=== PATIENT | female | born 1970 | race Caucasian/White ===

== ENCOUNTER 2022-10-19 10:32 | Inpatient (IN) | payer MEDICAID ==
[~2022-10-19] VITALS: Ht 157.5 cm; Wt 45.8 kg
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
--- NOTE | 2022-10-19 11:39 | NUR ---
emt and nurse at bedside attending pt needs
[2022-10-19] MEDS ORDERED: LORAZEPAM INJ 2 MG/ML VIAL ONE (11:48)
[2022-10-19] MEDS ORDERED: IV LR 1000 ML 1,000 ML BAG IV ONE (12:00)
[2022-10-19] MEDS ORDERED: LORAZEPAM INJ 2 MG/ML VIAL IM ONE (12:00)
[2022-10-19] MEDS ORDERED: PIPERACILLIN /TAZOBACTAM 3.375 G in IV D5W 50 ML IV ONE (12:00)
[2022-10-19] MEDS ORDERED: VANCOMYCIN 1 GM in IV D5W 250 ML IV ONE (12:00)
--- NOTE | 2022-10-19 12:04 | NUR ---
WOUND CULTURE SPECIMEN OBTAINED AND SENT TO LAB
--- NOTE | 2022-10-19 12:06 | NUR ---
IV LINE ESTABLISHED ON R HAND #20. PHLEB AT BEDSIDE FOR BLOOD DRAW.
--- NOTE | 2022-10-19 12:27 | NUR ---
SATELLITE TECHNICIAN AT XRAY
[2022-10-19 12:33] LABS: LYMPHOCYTES # (AUTO) 1.2 K/uL (0.8-4.8); LYMPHOCYTES % (AUTO) 3.5 % (20.0-44.0)
--- NOTE | 2022-10-19 12:44 | NUR ---
MOVE SHEET SUBMITTED.
[2022-10-19 12:50] LABS: BASOPHILS % (AUTO) 0.1 % (0.0-2.0); HEMATOCRIT 32 % (33-45); HEMOGLOBIN 10.2 g/dL (11.5-14.8); MEAN CORPUSCULAR HGB CONC 33 g/dl (31.0-36.0); MEAN CORPUSCULAR VOLUME 88 fL (82-100); MONOCYTES # (AUTO) 0.8 K/uL (0.1-1.30); MONOCYTES % (AUTO) 2.4 % (2.0-12.0); NEUTROPHILS # (AUTO) 31.4 K/uL (1.8-8.9); PLATELET COUNT (AUTO) 463 K/uL (150-450); RED BLOOD CELL COUNT(AUTO) 3.56 MIL/uL (4.0-5.2)
[2022-10-19 13:06] LABS: ALBUMIN 1.7 g/dL (3.4-5.0); BILIRUBIN,DIRECT 0.2 mg/dL (0.0-0.2); BILIRUBIN,TOTAL 0.5 mg/dL (0.2-1.0); CALCIUM, SERUM 8.3 mg/dL (8.5-10.1); CREATININE 1.6 mg/dL (0.6-1.3); POTASSIUM 5.4 mmol/L (3.5-5.1); TOTAL PROTEIN, SERUM 7.5 g/dL (6.4-8.2)
[2022-10-19 13:27] LABS: WHITE BLOOD COUNT (AUTO) 33.4 K/uL (4.3-11.0)
[2022-10-19] MEDS ORDERED: CLINDAMYCIN 600 MG in IV D5W 100 ML IV ONE (14:30)
[2022-10-19 15:58] LABS: LYMPHOCYTES % (MANUAL) 2 % (16-48); MONOCYTES % (MANUAL) 2 % (0-11.0); NEUTROPHILS % (MANUAL) 96 (42-76)
[2022-10-19] MEDS ORDERED: IV LR 1000 ML 1,000 ML IV ONE (17:00)
--- NOTE | 2022-10-19 17:15 | NUR ---
seen by dr. tijerina
--- NOTE | 2022-10-19 19:52 | NUR ---
BED 113-1
[2022-10-19] MEDS ORDERED: Z GUARD REMEDY 4 OZ OINT TP PRN (20:00)
[2022-10-19] MEDS ORDERED: MAG HYDROX/AL HYDROX/SIMETH 30 ML UDC PO PRN (20:00)
[2022-10-19] MEDS ORDERED: ONDANSETRON HCL/PF 4 MG/2 ML VIAL IVP PRN (20:00)
[2022-10-19] MEDS ORDERED: MAGNESIUM HYDROXIDE 30 ML UDC PO PRN (20:00)
[2022-10-19] MEDS ORDERED: MORPHINE SULFATE INJ 2 MG/ML DISP.SYRIN IV PRN (20:00)
--- NOTE | 2022-10-19 20:00 | NUR ---
URINE SAMPLE COLLECTED AND SENT TO LAB
[2022-10-19 20:27] LABS: BILIRUBIN,URINE NEGATIVE (NEGATIVE); COLOR,URINE YELLOW (YELLOW); LEUKOCYTE ESTERASE ,URINE NEGATIVE (NEGATIVE); NITRITE, URINE NEGATIVE (NEGATIVE); PH,URINE 5.5 (5.0-8.0); PROTEIN,URINE TRACE mg/dl (NEGATIVE); UGLUCOSE NEGATIVE (NEGATIVE); UROBILINOGEN,URINE 0.2 EU/dL (0.2)
--- NOTE | 2022-10-19 20:29 | NUR ---
REPORT GIVEN TO ESTIVEN ZAZUETA.
[2022-10-19 20:39] LABS: BACTERIA,URINE Few /HPF (None Seen); SQUAMOUS EPITHELIAL CELL,UR Moderate /HPF (None Seen); WBC,URINE NONE SEEN /HPF (0-3)
--- NOTE | 2022-10-19 21:08 | NUR ---
TRANSFERRED PATIENT TO [facility] VIA ACLS.
[2022-10-19 21:40] VITALS: BP 100/71
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
[2022-10-19] MEDS ORDERED: ZOLPIDEM TARTRATE 5 MG TABLET PO PRN (22:00)
[2022-10-19] MEDS ORDERED: PIPERACILLIN /TAZOBACTAM 2.25 G VIAL IV ONE (23:07)
[2022-10-19] MEDS: IV NS 0.9% 1,000 ML IV PRN (23:12)
[2022-10-19] MEDS: ZOSYN IVPB 2.25 G in IV D5W 50ml IV SCH (23:14)
[2022-10-20 04:00] VITALS: BP 99/53
[2022-10-20] MEDS ORDERED: PIPERACILLIN /TAZOBACTAM 2.25 G VIAL IV ONE (05:04)
[2022-10-20] MEDS: ZOSYN IVPB 2.25 G in IV D5W 50ml IV SCH ×4 (05:35→23:35)
[2022-10-20 06:14] LABS: CREATININE 1.1 mg/dL (0.6-1.3); MAGNESIUM 2.2 mg/dL (1.8-2.4); PHOSPHORUS 4.3 mg/dL (2.5-4.9); POTASSIUM 4.5 mmol/L (3.5-5.1)
[2022-10-20 06:19] LABS: BASOPHILS # (AUTO) 0.1 K/uL (0.0-0.2); BASOPHILS % (AUTO) 0.2 % (0.0-2.0); HEMATOCRIT 26 % (33-45); HEMOGLOBIN 8.6 g/dL (11.5-14.8); LYMPHOCYTES # (AUTO) 0.8 K/uL (0.8-4.8); LYMPHOCYTES % (AUTO) 2.3 % (20.0-44.0); MEAN CORPUSCULAR HGB CONC 34 g/dl (31.0-36.0); MEAN CORPUSCULAR VOLUME 87 fL (82-100); MONOCYTES # (AUTO) 0.9 K/uL (0.1-1.30); MONOCYTES % (AUTO) 2.6 % (2.0-12.0); NEUTROPHILS # (AUTO) 32.9 K/uL (1.8-8.9); NEUTROPHILS % (AUTO) 94.9 % (43.0-81.0); PLATELET COUNT (AUTO) 355 K/uL (150-450); RED BLOOD CELL COUNT(AUTO) 2.93 MIL/uL (4.0-5.2)
[2022-10-20 06:22] LABS: THYROID STIMULATING HORMONE 2.783 uIU/mL (0.358-3.74)
[2022-10-20 06:33] LABS: WHITE BLOOD COUNT (AUTO) 34.7 K/uL (4.3-11.0)
--- NOTE | 2022-10-20 06:39 | NUR ---
END OF SHIFT, PATIENT ASLEEP AT THIS TIME, AT ROOM AIR, NO SIGNIFICANT CHANGE IN CONDITION DURING THE NIGHT, ON IVF/ANTIBIOTICS, WOUND CONSULT FOR MULTIPLE WOUNDS, IV SITE IN RIGHT HAND 20G PATENT AND INTACT, BED LOCKED AND IN LOWEST POSITION, KEPT PATIENT CLEAN WARM AND COMFORTABLE, STABLE VITAL SINGS, WILL ENDORSE CONTINUITY OF CARE TO ONCOMING NURSE.
--- NOTE | 2022-10-20 07:00 | NUR ---
RN NOTES Received patient in bed, alert but tired looking without active complaint. Telemetry showed ST HR 125/min. Right hand IV site is dry and intact with IVF running at 75mL/hr. Call sidhu is placed within reach. Bed is locked and placed in the lowest position. All safety measures have been implemented.
[2022-10-20] MEDS: PANTOPRAZOLE 40 MG TABLET.DR PO SCH (07:30)
[2022-10-20 08:00] VITALS: BP 93/59
--- NOTE | 2022-10-20 10:05 | NUR ---
WOUND CARE CONSULT: PT PRESENTS WITH MULTIPLE SKIN ISSUES AND WOUNDS, PRESENT ON ADMISSION INCLUDING VERY SIGNIFICANT RT LOWER LEG AND FOOT WOUND WITH SEROPURULENT DRAINAGE AND VERY FOUL ODOR, LEFT LOWER LEG AND FOOT SWELLING WITH REDNESS, WELL DRY ESCHAR TO CHIN, RT AND LEFT BUTTOCK DEEP TISSUE INJURIES IN EVOLUTION, SACRAL DEEP TISSUE INJURY IN EVOLUTION AND CACHEXIA. RECOMMENDATIONS MADE FOR SKIN PROTECTION. DISCUSSED WITH NURSING STAFF. ORTHO CONSULT WAS CALLED TO LOWER EXTREMITIES PER NURSING STAFF AND MD DOCUMENTATION. PT ON ISOFLEX LOW AIRLOSS BED. MD IN AGREEMENT WITH PLAN OF CARE. Addendum: 10/20/22 at 1013 by BILLY FLORES IN ADDITION: THERE ARE INTACT DEEP TISSUE INJURIES/DISCOLORATIONS ALONG SPINE WHICH IS VERY BONY. RECOMMENDATIONS MADE FOR SKIN PROTECTION. DISCUSSED WITH NURSING STAFF. Addendum: 10/20/22 at 1022 by BILLY FLORES DISCUSSED ABOVE WITH DOUBLE END TENON OPERATOR. PODIATRY CONSULT ALSO CALLED TO DR SANTOS.
[2022-10-20] MEDS: ENSURE ENLIVE 237 ML LIQUID (VANILLA) PO SCH ×2 (11:59→16:26)
[2022-10-20 12:00] VITALS: BP 115/73
[2022-10-20] MEDS ORDERED: VANCOMYCIN HCL 0.75 GM in IV D5W 250 ML IV SCH (12:00)
--- NOTE | 2022-10-20 12:30 | NUR ---
RN notes Told patient about the need to do an MRI. She refused. Doctor is notified.
[2022-10-20 14:00] LABS: BAND % (MANUAL) 15 % (0.0-5.0); LYMPHOCYTES % (MANUAL) 4 % (16-48); MONOCYTES % (MANUAL) 1 % (0-11.0); NEUTROPHILS % (MANUAL) 80 (42-76)
[2022-10-20 16:00] VITALS: BP 90/54
[2022-10-20] MEDS: IV NS 0.9% 1,000 ML IV PRN (17:29)
--- NOTE | 2022-10-20 17:30 | NUR ---
RN NOTE ATTEMPTED TO PERFORM WOUND CARE AGAIN. PATIENT REFUSES AND STARTS KICKING, STATING "LEAVE ME". UNABLE TO PERFORM WOUND CARE AT THIS TIME. PATIENT IS ALSO REFUSING LINEN CARE.
--- NOTE | 2022-10-20 18:32 | NUR ---
RN notes Patient is resting in bed without active complaint. Right hand IV site is dry and intact with NS running at 75mL/hr. Afebrile today. Call sidhu is placed within reach. Bed is locked and placed in the lowest position. All safety measures have been implemented. Will endorse PM nurse to continue monitoring and care.
[2022-10-20 20:00] VITALS: BP 93/55
[2022-10-21] MEDS: VANCOMYCIN HCL 0.75 GM in IV D5W 250 ML IV SCH ×2 (00:31→12:19)
[2022-10-21 04:00] VITALS: BP 100/51
[2022-10-21] MEDS: ZOSYN IVPB 2.25 G in IV D5W 50ml IV SCH ×3 (05:25→17:01)
--- NOTE | 2022-10-21 06:39 | NUR ---
RN CLOSING NOTES: RECEIVED PT IN BED, ALERT/ORIENTED X0, VERY CONFUSED. ON ROOM AIR AND PT TOLERATED WELL. O2 SAT 99%. IV ACCESS ON RT HAND#20G INTACT AND PATENT. NO S/S OF INFILTRATIONS. RUNNING NS AT 75CC/HR. NO C/O PAIN OR DISCOMFORT. NO ACUTE DISTRESS. WOUND CARE DONE. NOTED FOUL SMELL. ALL DUE MEDS GIVEN GIVEN ORDERED. ALL SAFETY MEASURES IN PLACE. SIDE RAILS UP X3, PLACE CALL LIGHT WITH IN REACH. WILL ENDORSE TO MORNING SHIFT NURSE.
[2022-10-21 07:18] LABS: BASOPHILS % (AUTO) 0.1 % (0.0-2.0); EOSINOPHILS % (AUTO) 0.1 % (0.0-6.0); HEMATOCRIT 24 % (33-45); HEMOGLOBIN 8.1 g/dL (11.5-14.8); LYMPHOCYTES # (AUTO) 0.8 K/uL (0.8-4.8); LYMPHOCYTES % (AUTO) 3.9 % (20.0-44.0); MEAN CORPUSCULAR HGB CONC 34 g/dl (31.0-36.0); MEAN CORPUSCULAR VOLUME 87 fL (82-100); MONOCYTES % (AUTO) 5.1 % (2.0-12.0); NEUTROPHILS # (AUTO) 17.8 K/uL (1.8-8.9); NEUTROPHILS % (AUTO) 90.8 % (43.0-81.0); PLATELET COUNT (AUTO) 351 K/uL (150-450); RED BLOOD CELL COUNT(AUTO) 2.76 MIL/uL (4.0-5.2); WHITE BLOOD COUNT (AUTO) 19.6 K/uL (4.3-11.0)
--- NOTE | 2022-10-21 07:43 | NUR ---
RN NOTES PATIENT REPORT RECEIVED FROM NIGHTSHIFT RNJEFFERSON. PATIENT IN ROOM ASLEEP BREATHING EVENLY AND UNLABORED ON ROOM AIR. IV ACCESS MAINTAINED ON RIGHT HAND 20 GAUGE RUNNING FLUIDS ORDERED. SAFETY MEASURES IN PLACE WILL CONTINUE PLAN OF CARE AND ANTICIPATE NEEDS.
[2022-10-21 08:01] LABS: BILIRUBIN,TOTAL 0.4 mg/dL (0.2-1.0); CALCIUM, SERUM 7.3 mg/dL (8.5-10.1); MAGNESIUM 2.1 mg/dL (1.8-2.4); PHOSPHORUS 2.9 mg/dL (2.5-4.9); POTASSIUM 3.8 mmol/L (3.5-5.1); TOTAL PROTEIN, SERUM 5.4 g/dL (6.4-8.2)
[2022-10-21 08:02] LABS: ALBUMIN 1.1 g/dL (3.4-5.0)
[2022-10-21] MEDS: PANTOPRAZOLE 40 MG TABLET.DR PO SCH (08:09)
[2022-10-21] MEDS: ENSURE ENLIVE 237 ML LIQUID (VANILLA) PO SCH ×3 (08:09→17:01)
--- NOTE | 2022-10-21 10:41 | NUR ---
PATIENT REFUSING WOUND CARE. STATES SHE IS "TIRED" AND WANTS TO BE LEFT ALONE. PROVIDED EDUCATION ON THE IMPORTANCE OF WOUND CARE. PATIENT COVERED HER FACE AND REFUSES TO TALK FURTHER. WILL CONTINUE PLAN OF CARE AND ANTICIPATE NEEDS.
[2022-10-21 12:00] VITALS: BP 105/63
--- NOTE | 2022-10-21 14:35 | NUR ---
SS Consult: SS consult requested for homelessness and missing last name. The pt. is a 57 -year-old female pt. admitted for failure to thrive per EMR. Upon SS consult, the pt. is Alert & Oriented x 3 and makes good eye contact. The pt. appears disheveled with paranoid mood & affect. Pt.s speech is clear and has disorganized thought process. Pt. remained guarded, calm & somewhat cooperative throughout interview. Pt. denies SI/HI and denies visual hallucinations. Pt. states she ignores the voices. Pt. denies having commanding auditory hallucinations. Pt. denies any previous diagnosis of mental illness and denies use of medication for her mental health. SW explored pt.s [place]. [place] [address] and refused to give details of where she resides. SW explored pt.s drug & ETOH use. Pt. denies use of any alcohol & drug use. Pt. stated she was ambulating independently prior to hurting her foot. SW explored pt.s support system. Pt. refused to provide any contact information of family or friends. Plan: SW provided homeless resources: shelters, storage, rehousing services, food javed, etc. and pt. accepted them. Pt. signed homeless waiver and it was placed in the pt.s chart. Pt. did not answer URIEL when asked if she would like long-term placement. SW can will follow up as needed. Year-round shelters: [facility] [address] [place], [place] [phone] ; [facility] [address] [place] [address]; [facility] [id number] [facility]. [facility] [address] Hygiene: [facility]: [address] [place] ; [facility] [address] [facility] ; [facility] [address] . Food Resources: [place] [facility] at [facility]- [address]. Lena; Meet Each Need with Dignity ([facility]) [address]; [facility] Food Pant[facility] [address] [facility]; [facility] [address] [facility]. Mental Health resources provided: [facility] [address] [place], [place] [address] ; [facility] [address], [place] [address] ; [facility] [address] [place] [address] ; [facility] [address] [place], [place] [phone] Healthcare Clinics: [facility] [address] [facility], [address] [place]. [place] ; [facility] [address] [facility] [address] [place] [address]; [facility] [address] [facility] [place] [address] [phone]) [phone] Counseling--Outpatient [facility] [address] [facility], [place] [address] (Specializes in in-depth psychotherapy for emotional distress: anxiety, depression, interpersonal conflicts, life transitions, childhood abuse) [facility] [address] [place] [address] (Assist with solving problem marital difficulties, separation & divorce, aging parents, & grief, chronic & terminal illness) [facility] [address] [place] [address] (Deal with loss & grief, anxiety, marital difficulties) Homebound/Mental Health Services [address] [facility], [address] [place] [address] (Provide in-home mental services to people who are incapable of leaving their homes) [facility] of [facility] Elderly Senior Service/Resource Center [address] [place] [address] [facility] [address] [facility]. [place], [place] [phone] PSYCHIATRIC OUTPATIENT SERVICES [facility] Partial Hospitalization and Intensive Outpatient Program (Managed Care and [place] Only)[address] [facility] [phone] [facility] Partial Hospitalization and Outpatient [id number] [place], [place] [phone] PRAVEEN TRISTAN [facility] Health Burkett [address] [place], [place] [phone] [facility] Partial Hospitalization and Outpatient [id number] [facility] Praveen Tristan, [phone] Substance Abuse resources provided included: [facility] Substance Abuse Self-Helpline ([facility]) ; [facility] [address] [facility]. [place] [id number] ; [facility] [address] [facility] [address] ; [facility] Rehabilitation Program [address] [facility] [phone] ; [facility] [address] [facility] [phone] ; [facility] Treatment Centers 4940 [facility] [phone] ; [facility] [address] [facility] [phone] ; [facility] Substance Abuse Helpline(SAS)-[facility] ; [facility] ; [facility] Roxana; [facility] [place]; [facility] [place]; [facility] Praveen Arangoeduardo; [facility]; [facility]; [facility] [place]; [facility], [facility]. Heladio Bass; Alcoholics Anonymous -[facility]V; Misty ; Marijuana Anonymous -[facility]V; Narcotics Anonymous [email or web address]; Addendum: 10/21/22 at 1538 by MANDA TREVINO Correction: Pt. was admitted for foot wound per EMR. Pt. refused to sign homeless waiver and it was placed in the pt.'s chart.
--- NOTE | 2022-10-21 15:38 | NUR ---
Pt. provided full name: Sarah Hawthorne and : 1970. SW left admission dept, Paige a voicemail with information.
[2022-10-21] MEDS: IV NS 0.9% 1,000 ML IV PRN (16:11)
--- NOTE | 2022-10-21 18:57 | NUR ---
PATIENT REMAINS IN ROOM. HAND OFF REPORT GIVEN TO NIGHTSHIFT RN FOR CONTINUATION OF CARE.
--- NOTE | 2022-10-21 19:30 | NUR ---
RN OPENING NOTE PT A&OX0. STATED THAT SHE HAD TO MAKE A BM AND WAS PLACED ON BED PETERSON AND CLEANED. SKIN IS WARM AND DRY. RESPIRATIONS EVEN AND UNLABORED ON RA. NO ACUTE SIGNS OF DISTRESS. 20 G R HAND IV INTACT AND RUNNING NS @ 75 ML/HR. PT DENIES OTHER NEEDS AT THIS TIME. SAFETY PRECAUTIONS IN PLACE. BED LOCKED AND AT LOWEST POSITION WITH X2 RAILS UP. BED ALARM ON AND CALL LIGHT WITHIN REACH.
[2022-10-21 20:00] VITALS: BP 107/59
[2022-10-22] MEDS: VANCOMYCIN HCL 0.75 GM in IV D5W 250 ML IV SCH ×2
[2022-10-22] MEDS: ZOSYN IVPB 2.25 G in IV D5W 50ml IV SCH ×4 (00:03→17:07)
[2022-10-22 04:00] VITALS: BP 109/61
--- NOTE | 2022-10-22 07:05 | NUR ---
RN NOTES RECEIVED PT ON BED, Ax0x1, ON RA , O2 SAT WNL, NO DISTESS NOTED, DRESSING TO RIGHT LEG INTACT, SR UP x3, CALL LIGHT WITHIN EASY REACH, BED LOCKED AND IN LOWEST POSITION, CONTINUE TO MONITOR.
[2022-10-22 07:21] LABS: BASOPHILS % (AUTO) 0.1 % (0.0-2.0); EOSINOPHILS % (AUTO) 0.1 % (0.0-6.0); HEMATOCRIT 25 % (33-45); HEMOGLOBIN 8.1 g/dL (11.5-14.8); LYMPHOCYTES # (AUTO) 0.7 K/uL (0.8-4.8); LYMPHOCYTES % (AUTO) 6.2 % (20.0-44.0); MEAN CORPUSCULAR HGB CONC 33 g/dl (31.0-36.0); MEAN CORPUSCULAR VOLUME 88 fL (82-100); MONOCYTES # (AUTO) 0.7 K/uL (0.1-1.30); NEUTROPHILS % (AUTO) 87.6 % (43.0-81.0); PLATELET COUNT (AUTO) 353 K/uL (150-450); RED BLOOD CELL COUNT(AUTO) 2.82 MIL/uL (4.0-5.2); WHITE BLOOD COUNT (AUTO) 11.5 K/uL (4.3-11.0)
[2022-10-22 08:00] VITALS: BP 103/60
[2022-10-22] MEDS: PANTOPRAZOLE 40 MG TABLET.DR PO SCH (08:14)
[2022-10-22] MEDS: ENSURE ENLIVE 237 ML LIQUID (VANILLA) PO SCH ×3 (08:15→16:44)
--- NOTE | 2022-10-22 08:30 | NUR ---
WOUND CARE CONSULT/FOLLOW UP: RECEIVED ANOTHER CONSULT FOR LOWER EXTREMITIES. PT HAS SEVERE WOUNDS/SWELLING WITH VERY FOUL DRAINAGE TO RT LOWER LEG AND FOOT, PRESENT ON ADMISSION. NEEDS SURGICAL CONSULT. DISCUSSED WITH DRUM STRAIGHTENER AND NURSING STAFF. DEFER TO PMD FOR ORTHO CONSULT. PT HAS BEEN REFUSING MRI. DISCUSSED RECOMMENDATIONS FOR SKIN PROTECTION AND WOUND CARE WHILE AWAITING SURGICAL/ORTHO CONSULT.
[2022-10-22 08:59] LABS: MAGNESIUM 1.9 mg/dL (1.8-2.4); PHOSPHORUS 2.6 mg/dL (2.5-4.9); POTASSIUM 3.3 mmol/L (3.5-5.1)
[2022-10-22] MEDS ORDERED: DEXTROSE 50%-WATER 50 ML DISP.SYRIN ONE (09:40)
[2022-10-22] MEDS ORDERED: DEXTROSE 50%-WATER 50 ML DISP.SYRIN IVP ONE (10:00)
[2022-10-22 10:29] LABS: CALCIUM, SERUM 7.3 mg/dL (8.5-10.1); CREATININE 0.9 mg/dL (0.6-1.3)
--- NOTE | 2022-10-22 10:30 | NUR ---
PATIENT VERBALIZED SHE HAD MRI 2002 AND DENIED ANY METAL ON HER BODY.AGREED WITH THE MRI.MRI NOTIFIED.
[2022-10-22] MEDS: VANCOMYCIN 500 MG in IV D5W 100ml IV SCH (11:23)
[2022-10-22 12:00] VITALS: BP 98/48
--- NOTE | 2022-10-22 12:00 | NUR ---
RN NOTES PT REFUSED TO HAVE MRI DONE, DESPITE EXPLANATION OF RISK INCLUDING , PT STILL REFUSED, DR BOWMAN NOTIFIED,
[2022-10-22] MEDS: DAKINS FULL STRENGTH (0.5%) 480 ML BOTTLE TOP SCH (12:08)
--- NOTE | 2022-10-22 12:48 | NUR ---
RN NOTES PT REFUSED TO HAVE DRESSING CHANGE DONE TO RIGHT LEG , STATED IT IS OK . EXPLAINED TO PT HOW IMPORTANT IS TO STAY WITH PLAN OF CARE , PT STILL REFUSED .
[2022-10-22] MEDS: POTASSIUM CL. PREMIX PERIPHER. 50 ML IV SCH ×2 (12:59→14:00)
[2022-10-22 13:00] VITALS: BP 107/61
[2022-10-22] MEDS: IV NS 0.9% 1,000 ML IV PRN (15:56)
[2022-10-22 16:00] VITALS: BP 107/61
[2022-10-22] MEDS ORDERED: TDAP [DIPH/PERTUSSIS/TET] 0.5 ML VIAL IM ONE (16:00)
--- NOTE | 2022-10-22 16:09 | NUR ---
RN NOTES PT REFUSING CARE, DR BOWMAN AND DR WATTS ( PSYCH ) NOTIFIED , NEW PSYCH CONSULT ORDER PLACED ,IF PT HAS CAPACITY TO MAKE DECISION.
--- NOTE | 2022-10-22 18:29 | NUR ---
RN NOTES PT CONFUSED AT TIMES, REFUSES CARE , MD NOTIFIED . SR UP x3, CALL LIGHT WITHIN EASY REACH, BED LOCKED AND IN LOWEST POSITION, WILL ENDORSE TO CHARTER COACH DRIVER NURSER FOR CONTINUITY OF CARE
--- NOTE | 2022-10-22 19:30 | NUR ---
RN OPENING NOTES PT A&OX0 AND CONFUSED. SKIN IS WARM AND DRY. ODOR FROM R LEG NOTED. DRESSING IN PLACE ON RLE. AMILCAR IV INTACT AND RUNNING NS @ 75 ML/HR. PT ON RA AND TOLERATING WELL. NO ACUTE SIGNS OF DISTRESS. PT DRANK A CARTON OF MILK. SAFETY PRECAUTIONS IN PLACE. BED LOCKED AND AT LOWEST LEVEL. X2 RAILS UP AND BED ALARM ON. CALL LIGHT WITHIN REACH. DENIES OTHER NEEDS AT THIS TIME.
[2022-10-22 20:00] VITALS: BP 104/56
[2022-10-23] MEDS: ZOSYN IVPB 2.25 G in IV D5W 50ml IV SCH ×4 (00:08→17:19)
[2022-10-23] MEDS: VANCOMYCIN 500 MG in IV D5W 100ml IV SCH ×2 (00:45→11:33)
--- NOTE | 2022-10-23 03:38 | NUR ---
EDUCATED PT AND PROMOTED DRESSING CHANGE. PT REFUSED SINCE SHE "COULDN'T TAKE THE PAIN" LAST TIME IT WAS DONE. OFFERED PT PAIN MEDICATION PRIOR TO CHANGE BUT PT REFUSED.
[2022-10-23 05:58] VITALS: BP 104/62
--- NOTE | 2022-10-23 06:33 | NUR ---
RN CLOSING NOTE PT REMAINS CONFUSED. SKIN IS WARM AND DRY. ODOR AND LEAKAGE FROM R LEG DRESSING NOTED. AMILCAR IV INTACT AND RUNNING ABX. PT ON RA AND TOLERATING WELL. NO ACUTE SIGNS OF DISTRESS. SAFETY PRECAUTIONS IN PLACE. BED LOCKED AND AT LOWEST LEVEL. X2 RAILS UP AND BED ALARM ON. CALL LIGHT WITHIN REACH.
--- NOTE | 2022-10-23 07:18 | NUR ---
RN OPENING NOTES: RECEIVED PATIENT IN BED ASLEEP BUT EASILY AROUSES TO SOUND AND TOUCH. PATIENT IS ALERT TO NAME BUT NOTED WITH PERIODS OF CONFUSION. NO SOB NOTED, ON RA WITH OXYGEN SATURATION OF 100%. NO C/O PAIN OR DISCOMFORT AT THIS TIME. IV ACCESS ON LEFT UPPER ARM IS INTACT WITH IV FLUID OF NS RUNNING @ 75 ML/HR, IV SITE WITH NO S/S INFILTRATION NOTED. CALL LIGHT WITHIN REACH. ALL SAFETY MEASURES IN PLACE. BED LOCKED AND IN LOWEST POSITION. WILL CONTINUE TO MONITOR PATIENT THROUGHOUT SHIFT.
[2022-10-23] MEDS: ENSURE ENLIVE 237 ML LIQUID (VANILLA) PO SCH ×3 (07:40→17:00)
[2022-10-23] MEDS: PANTOPRAZOLE 40 MG TABLET.DR PO SCH (07:51)
[2022-10-23] MEDS: DAKINS FULL STRENGTH (0.5%) 480 ML BOTTLE TOP SCH (09:22)
--- NOTE | 2022-10-23 09:27 | NUR ---
CHRISTIAN MALHOTRA DNP CAME BY TO SPEAK WITH THE PATIENT FOR PSYCHIATRY CONSULT AND EVALUATION.
[2022-10-23] MEDS: IV NS 0.9% 1,000 ML IV PRN (11:33)
--- NOTE | 2022-10-23 11:33 | NUR ---
CALLED PHARMACY, SPOKE WITH LASHONDA AND INFORMED OF TROUGH OF 23 AND STATED TO GIVE VANCO ORDERED BY .
[2022-10-23 11:36] LABS: BASOPHILS % (AUTO) 0.1 % (0.0-2.0); EOSINOPHILS % (AUTO) 0.4 % (0.0-6.0); HEMATOCRIT 26 % (33-45); HEMOGLOBIN 8.6 g/dL (11.5-14.8); LYMPHOCYTES # (AUTO) 0.9 K/uL (0.8-4.8); MEAN CORPUSCULAR HGB CONC 33 g/dl (31.0-36.0); MEAN CORPUSCULAR VOLUME 89 fL (82-100); MONOCYTES # (AUTO) 0.6 K/uL (0.1-1.30); MONOCYTES % (AUTO) 7.3 % (2.0-12.0); NEUTROPHILS # (AUTO) 6.7 K/uL (1.8-8.9); NEUTROPHILS % (AUTO) 81.2 % (43.0-81.0); PLATELET COUNT (AUTO) 372 K/uL (150-450); RED BLOOD CELL COUNT(AUTO) 2.95 MIL/uL (4.0-5.2); WHITE BLOOD COUNT (AUTO) 8.3 K/uL (4.3-11.0)
[2022-10-23 11:51] LABS: CALCIUM, SERUM 7.4 mg/dL (8.5-10.1); CREATININE 0.8 mg/dL (0.6-1.3); MAGNESIUM 1.8 mg/dL (1.8-2.4); POTASSIUM 3.6 mmol/L (3.5-5.1)
[2022-10-23 12:00] VITALS: BP 99/61
--- NOTE | 2022-10-23 12:45 | NUR ---
ZOSYN AVAILABLE ON HAND IS WITH A DIFFERENT TIME. CALLED PHARMACY, SPOKE WITH JARITHA AND WAS INFORMED TO GIVE MEDICATION SINCE THE ORDER IS THE SAME. MED ADMINISTERED ORDERED BY
[2022-10-23] MEDS: HYDROCODONE/APAP 5/325MG TABLET PO PRN (13:36)
--- NOTE | 2022-10-23 15:15 | NUR ---
WOUND CARE TREATMENT DONE AND TOLERATED BY THE PATIENT.
[2022-10-23 15:57] LABS: ALCOHOL, BLOOD < 3 mg/dL (0-0)
[2022-10-23 16:00] LABS: ACETAMINOPHEN < 10 ug/ml (10-30)
[2022-10-23] MEDS ORDERED: K PHOS NEUTRAL 250 MG TABLET PO ONE (16:00)
--- NOTE | 2022-10-23 18:50 | NUR ---
ELECTRICAL SYSTEMS DRAFTER CLOSING NOTES: PATIENT IN BED, AWAKE, ALERT, ORIENTED TO NAME AND PLACE. NO C/O PAIN OR DISCOMFORT AT THIS TIME. ON NS @ 75 ML,/HR VIA IV SITE ON LEFT UPPER ARM, NO S/S INFILTRATION NOTED. ALL NEEDS MET AND ANTICIPATED. CALL LIGHT WITHIN REACH. BED LOCKED AND IN LOWEST POSITION. WILL ENDORSE TO NEXT SHIFT NURSE FOR CONTINUITY OF CARE.
--- NOTE | 2022-10-23 19:10 | NUR ---
RN OPENING NOTES: RECEIVED PATIENT IN BED AWAKE, PT IS ALERT BUT SEEMS TO BE CONFUSED, WITH SWITCHING CONVERSATION TOPICS.ON RA, TOLERATING WELL, NO S/S OF DISTRESS. IV ACCESS ON AMILCAR RUNNING NS@ 75 ML/HR, IV SITE WITH NO S/S INFILTRATION NOTED. PT RIGHT LEG DRESSING C/D/I. ALL SAFETY MEASURES IN PLACE. CALL LIGHT WITHIN REACH. BED LOCKED AND IN LOWEST POSITION. WILL CONTINUE TO MONITOR PATIENT THROUGHOUT SHIFT
[2022-10-23 20:00] VITALS: BP 103/55
--- NOTE | 2022-10-23 23:15 | NUR ---
RN NOTE URINE SAMPLE COLLECTED AND SENT TO LAB.
--- NOTE | 2022-10-23 23:55 | NUR ---
RN NOTE PT REFUSED DRESSING CHANGE AND WOUND CLEANING. SHE STATED IT WAS DONE AT 3PM AND DOESNT NEED TO BE DONE AGAIN. I TOLD HER THAT IT IS LEAKING THROUGH THE BANDAGES AND THEY NEED TO BE CHANGED SHE HER WORDS WERE TO PLACE THE PAD UNDER HER LEG. I TOLD HER I CAN GIVE HER PAIN MEDICINE AND COME BACK, SHE STILL REFUSED.
[2022-10-24] MEDS: ZOSYN IVPB 2.25 G in IV D5W 50ml IV SCH ×5 (00:02→23:41)
[2022-10-24] MEDS: VANCOMYCIN 500 MG in IV D5W 100ml IV SCH ×2 (00:54→12:31)
[2022-10-24 04:00] VITALS: BP 103/62
[2022-10-24] MEDS: IV NS 0.9% 1,000 ML IV PRN ×2 (05:27→23:51)
--- NOTE | 2022-10-24 06:44 | NUR ---
RN CLOSING NOTES: PATIENT IN BED ASLEEP, AROUSES EASILY.ON RA, TOLERATING WELL, NO S/S OF DISTRESS. IV ACCESS ON AMILCAR RUNNING NS@ 75 ML/HR, IV SITE WITH NO S/S INFILTRATION NOTED. PT RIGHT LEG DRESSING C/D/I. ALL DUE MEDS GIVEN. ALL SAFETY MEASURES IN PLACE. CALL LIGHT WITHIN REACH. BED LOCKED AND IN LOWEST POSITION. WILL ENDORSE TO MORNING SHIFT.
--- NOTE | 2022-10-24 07:05 | NUR ---
OXYACETYLENE CUTTER CLOSING NOTE PATIENT IN BED AWAKE, A/O X2 with episodes of confusion, ON ROOM AIR, TOLERATING WELL, NO S/S OF DISTRESS. ABLE TO MAKE NEEDS KNOWN. . IV ACCESS AMILCAR #22G RUNNING NS@75ML/HR. WOUND DRESSING IS SOAKED PER NIGHT RN PATIENT REFUSED DRESSING CHANGED ALL SAFETY MEASURES IN PLACE. CALL LIGHT WITHIN REACH. BED LOCKED AND IN LOWEST POSITION. WILL MONITOR.
[2022-10-24] MEDS: PANTOPRAZOLE 40 MG TABLET.DR PO SCH (07:51)
[2022-10-24] MEDS: ENSURE ENLIVE 237 ML LIQUID (VANILLA) PO SCH ×3 (07:53→17:29)
[2022-10-24 08:00] VITALS: BP 94/49
[2022-10-24 08:21] LABS: BASOPHILS % (AUTO) 0.1 % (0.0-2.0); EOSINOPHILS % (AUTO) 0.4 % (0.0-6.0); HEMATOCRIT 21 % (33-45); HEMOGLOBIN 7.3 g/dL (11.5-14.8); LYMPHOCYTES # (AUTO) 1.1 K/uL (0.8-4.8); LYMPHOCYTES % (AUTO) 13.8 % (20.0-44.0); MEAN CORPUSCULAR HGB CONC 34 g/dl (31.0-36.0); MEAN CORPUSCULAR VOLUME 89 fL (82-100); MONOCYTES # (AUTO) 0.6 K/uL (0.1-1.30); MONOCYTES % (AUTO) 7.6 % (2.0-12.0); NEUTROPHILS # (AUTO) 6.1 K/uL (1.8-8.9); NEUTROPHILS % (AUTO) 78.1 % (43.0-81.0); PLATELET COUNT (AUTO) 313 K/uL (150-450); WHITE BLOOD COUNT (AUTO) 7.8 K/uL (4.3-11.0)
[2022-10-24 08:48] LABS: CALCIUM, SERUM 6.8 mg/dL (8.5-10.1); CREATININE 0.7 mg/dL (0.6-1.3); MAGNESIUM 1.7 mg/dL (1.8-2.4); PHOSPHORUS 2.4 mg/dL (2.5-4.9); POTASSIUM 3.4 mmol/L (3.5-5.1)
[2022-10-24] MEDS: Magnesium 1GM/D5W 100ML PREMIX 100 ML IV SCH ×2 (09:38→11:00)
[2022-10-24] MEDS: DAKINS FULL STRENGTH (0.5%) 480 ML BOTTLE TOP SCH (09:45)
--- NOTE | 2022-10-24 09:45 | NUR ---
RN notes: pt refused wound care, explained risk and benefits still say later will offer again later
[2022-10-24] MEDS ORDERED: POTASSIUM CHLORIDE 20 MEQ TAB.PRT.SR PO ONE (11:00)
[2022-10-24 16:00] VITALS: BP 125/96
[2022-10-24] MEDS ORDERED: K PHOS NEUTRAL 250 MG TABLET PO ONE (16:00)
--- NOTE | 2022-10-24 19:15 | NUR ---
medical terminologist closing notes: PT IN BED AWAKE, ALERT X 1, RESPIRATION IS EVEN AND UNLABORED, ON ROOM AIR SATTING 98% ,SKIN IS WARM AND DRY. BERNIE MIDLINE INTACT AND RUNNING D5W @ 75 HL/HR. JEVITY FEEDING STOPPED AT 0600. SUPRAPUBIC DALTON INTACT. ALL DUE MEDS ARE GIVEN ORDERED.KEPT CLEAN AND DRY AND COMFORTABLE, REPOSITION EVERY 2 HOURS,SAFETY PRECAUTIONS IN PLACE. BED LOCKED AND AT LOWEST LEVEL. X2 RAILS UP AND BED ALARM ON. R SOFT WRIST RESTRAINTS IN PLACE. CALL LIGHT WITHIN REACH ENDORSED TO WATER AND GAS HELPER RN FOR NALLELY
--- NOTE | 2022-10-24 19:30 | NUR ---
MED SURGE OPEN NOTE: ALERT TO NAME AND TIME. REORIENTED TO PLACE AND SITUATION. UNLABORED BREATHING SATING AT 98 % AT ROOM AIR. IVF OF NS 75 ML/HR. IV SITE ON LEFT UPPER ARM G 22, PATENT NO S/S OF COMPLICATIONS. RLE WITH DRESSING ON. BILATERAL HALF SIDE RAILS UP X2. HOB ELEVATED SEMI FOWLERS POSITION. BED IN LOW POSITION, LOCKED AND EXIT ALARM ON. CALL LIGHT IN REACH.
[2022-10-25] VITALS: BP 108/62
[2022-10-25] MEDS: VANCOMYCIN 500 MG in IV D5W 100ml IV SCH (00:27)
[2022-10-25] MEDS: ACETAMINOPHEN 325 MG TABLET PO PRN (02:16)
[2022-10-25] MEDS: ZOSYN IVPB 2.25 G in IV D5W 50ml IV SCH (05:25)
--- NOTE | 2022-10-25 06:47 | NUR ---
MED SURGE CLOSING NOTE: ALERT TO NAME AND TIME. REORIENTED TO PLACE AND SITUATION. UNLABORED BREATHING SATING AT 98 % AT ROOM AIR. IVF OF NS 75 ML/HR. IV SITE ON LEFT UPPER ARM G 22, PATENT NO S/S OF COMPLICATIONS. RLE WITH DRESSING ON. BILATERAL HALF SIDE RAILS UP X2. HOB ELEVATED SEMI FOWLERS POSITION. BED IN LOW POSITION, LOCKED AND EXIT ALARM ON. CALL LIGHT IN REACH. RLE DRESSING WITH MODERATE DRAINAGE SEROSANGUINEOUS, AND SOILED, REFUSED WOUND CARE, RISKS VS BENEFITS EXPLAINED AND VERBALIZED UNDERSTANDING AND SILL REFUSED. OFFERED TIMES THREE, RESIDENT STARTS TO YELL WHEN APPROACHED TO PROVIDE WOUND CARE, C/O PAIN 07/31 BUT REFUSED MORPHINE, NORCO. TYLENOL GIVEN REQUESTED. PATIENT STATED "I WANT OT REST, I DO NOT WANT TO BE BOTHERED." "I WILL HAVE IT CLEANED IN AM."
[2022-10-25 07:23] LABS: BASOPHILS % (AUTO) 0.4 % (0.0-2.0); EOSINOPHILS % (AUTO) 0.4 % (0.0-6.0); HEMATOCRIT 21 % (33-45); LYMPHOCYTES # (AUTO) 0.8 K/uL (0.8-4.8); LYMPHOCYTES % (AUTO) 12.7 % (20.0-44.0); MEAN CORPUSCULAR HGB CONC 34 g/dl (31.0-36.0); MEAN CORPUSCULAR VOLUME 88 fL (82-100); MONOCYTES # (AUTO) 0.5 K/uL (0.1-1.30); MONOCYTES % (AUTO) 7.8 % (2.0-12.0); NEUTROPHILS # (AUTO) 5.2 K/uL (1.8-8.9); NEUTROPHILS % (AUTO) 78.7 % (43.0-81.0); PLATELET COUNT (AUTO) 285 K/uL (150-450); RED BLOOD CELL COUNT(AUTO) 2.35 MIL/uL (4.0-5.2); WHITE BLOOD COUNT (AUTO) 6.5 K/uL (4.3-11.0)
--- NOTE | 2022-10-25 07:30 | NUR ---
RN OPENING NOTE PATIENT ALERT TO NAME AND TIME. REORIENTED TO PLACE AND SITUATION. UNLABORED BREATHING SATING AT 98 % AT ROOM AIR. IVF OF NS 75 ML/HR. IV SITE ON LEFT UPPER ARM G 22, PATENT NO S/S OF COMPLICATIONS. BILATERAL HALF SIDE RAILS UP X2. HOB ELEVATED SEMI FOWLERS POSITION. BED IN LOW POSITION, LOCKED AND EXIT ALARM ON. CALL LIGHT IN REACH. RLE WITH DRESSING ON. RLE DRESSING WITH MODERATE DRAINAGE SEROSANGUINEOUS, AND SOILED, REFUSED WOUND CARE, PER NIGHTSHIFT RN. WILL FOLLOW UP ON WOUND CARE ONCE PATIENT HAS HAD SOME TIME TO REST. WILL CONTINUE PLAN OF CARE AND ANTICIPATE NEEDS.
[2022-10-25 07:58] LABS: CALCIUM, SERUM 7.1 mg/dL (8.5-10.1); CREATININE 0.7 mg/dL (0.6-1.3); POTASSIUM 3.5 mmol/L (3.5-5.1)
[2022-10-25 08:00] VITALS: BP 105/65
--- NOTE | 2022-10-25 08:45 | NUR ---
message for hgb 7.0 hct 21 to waiting for returning call back
[2022-10-25] MEDS: ENSURE ENLIVE 237 ML LIQUID (VANILLA) PO SCH ×3 (08:58→16:47)
[2022-10-25] MEDS: DAKINS FULL STRENGTH (0.5%) 480 ML BOTTLE TOP SCH (09:00)
[2022-10-25] MEDS: PANTOPRAZOLE 40 MG TABLET.DR PO SCH (09:01)
[2022-10-25] MEDS: CEFAZOLIN 1 GM VIAL IM SCH ×3 (09:02→21:36)
--- NOTE | 2022-10-25 11:58 | NUR ---
PATIENT REFUSING WOUND CARE. PROVIDED EDUCATION ON THE IMPORTANCE OF KEEPING WOUNDS CLEAN TO PREVENT INFECTION. PATIENT STILL CONTINUES TO REFUSE. WILL CONTINUE PLAN OF CARE AND ANTICIPATE NEEDS.
--- NOTE | 2022-10-25 12:46 | NUR ---
PATIENT REFUSED BED BATH. PATIENT TOLD ROM TERESSA, "I CAN CLEAN MYSELF". TRADER FIXED INCOME PROVIDED SOAP LOTION AND WASH CLOTHS.
[2022-10-25 16:00] VITALS: BP 113/59
[2022-10-25] MEDS: IV NS 0.9% 1,000 ML IV PRN (17:14)
--- NOTE | 2022-10-25 18:26 | NUR ---
RN CLOSING NOTE PATIENT REMAINS IN ROOM. UNLABORED BREATHING SATING AT 98 % AT ROOM AIR. IVF OF NS 75 ML/HR. IV SITE ON LEFT UPPER ARM G 22, PATENT NO S/S OF COMPLICATIONS. BILATERAL HALF SIDE RAILS UP X2. HOB ELEVATED SEMI FOWLERS POSITION. BED IN LOW POSITION, LOCKED AND EXIT ALARM ON. CALL LIGHT IN REACH. RLE WITH DRESSING ON. RLE DRESSING WITH MODERATE DRAINAGE SEROSANGUINEOUS, AND SOILED, REFUSED WOUND CARE, THROUGHOUT SHIFT. WILL ENDORSE TO NIGHTSHIFT RN FOR CONTINUATION OF CARE.
--- NOTE | 2022-10-25 19:30 | NUR ---
RN OPENING NOTE RECEIVED PT IN BED, AWAKE. PT IS A/O X 3-4, ABLE TO VERBALIZE NEEDS. ON RA, TOLERATING WELL. NO S/SX OF ACUTE RESPI DISTRESS NOTED AT THIS TIME. IV LINE NOTED ON AMILCAR, #22g RUNNING NS @ 75 CC/HR. PATENT AND INTACT. PT REFUSED TO HAVE HER WOUND ON R LEG BE SEEN, LET ALONE BE TOUCHED OR CLEANED. ALL SAFETY MEASURES IN PLACE: BED LOCKED IN LOW POSITION, BED ALARM ON. CALL LIGHT WITHIN REACH. WILL CONTINUE TO MONITOR PT T/O THE NIGHT.
[2022-10-25 20:00] VITALS: BP 89/53
[2022-10-25] MEDS ORDERED: CEFAZOLIN 1 GM ONE (20:57)
[2022-10-26 04:00] VITALS: BP 109/75
[2022-10-26] MEDS ORDERED: CEFAZOLIN 1 GM ONE (04:17)
[2022-10-26] MEDS: CEFAZOLIN 1 GM VIAL IM SCH (04:18)
--- NOTE | 2022-10-26 05:10 | NUR ---
RN NOTE NO SIGNIFICANT CHANGE T/O THE NIGHT. PT STILL REFUSED TO HAVE HER R LEG WOUND DRESSING CHANGED. ALL DUE MEDS GIVEN. LINEN CHANGED. TURNED AND REPOSITIONED. PM CARE DONE. WILL ENDORSE TO AM SHIFT NURSE FOR NALLELY.
[2022-10-26 06:13] LABS: BASOPHILS % (AUTO) 0.2 % (0.0-2.0); EOSINOPHILS % (AUTO) 0.5 % (0.0-6.0); HEMATOCRIT 21 % (33-45); HEMOGLOBIN 7.1 g/dL (11.5-14.8); LYMPHOCYTES # (AUTO) 0.9 K/uL (0.8-4.8); LYMPHOCYTES % (AUTO) 19.5 % (20.0-44.0); MEAN CORPUSCULAR HGB CONC 33 g/dl (31.0-36.0); MEAN CORPUSCULAR VOLUME 90 fL (82-100); MONOCYTES # (AUTO) 0.5 K/uL (0.1-1.30); MONOCYTES % (AUTO) 10.6 % (2.0-12.0); NEUTROPHILS # (AUTO) 3.3 K/uL (1.8-8.9); NEUTROPHILS % (AUTO) 69.2 % (43.0-81.0); PLATELET COUNT (AUTO) 285 K/uL (150-450); RED BLOOD CELL COUNT(AUTO) 2.38 MIL/uL (4.0-5.2); WHITE BLOOD COUNT (AUTO) 4.8 K/uL (4.3-11.0)
[2022-10-26] MEDS: IV NS 0.9% 1,000 ML IV PRN ×2 (06:13→21:35)
[2022-10-26 07:05] LABS: CALCIUM, SERUM 7.2 mg/dL (8.5-10.1); CREATININE 0.6 mg/dL (0.6-1.3); MAGNESIUM 1.7 mg/dL (1.8-2.4); PHOSPHORUS 2.2 mg/dL (2.5-4.9); POTASSIUM 3.5 mmol/L (3.5-5.1)
[2022-10-26] MEDS: PANTOPRAZOLE 40 MG TABLET.DR PO SCH (08:45)
[2022-10-26] MEDS: ENSURE ENLIVE 237 ML LIQUID (VANILLA) PO SCH ×3 (08:45→16:12)
[2022-10-26] MEDS: DAKINS FULL STRENGTH (0.5%) 480 ML BOTTLE TOP SCH (09:00)
[2022-10-26] MEDS: Magnesium 1GM/D5W 100ML PREMIX 100 ML IV SCH ×2 (10:57→12:04)
[2022-10-26 12:00] VITALS: BP 101/53
[2022-10-26] MEDS ORDERED: K PHOS NEUTRAL 250 MG TABLET PO ONE (12:00)
[2022-10-26] MEDS: CEFAZOLIN 2 GM in IV D5W 100 ML IV SCH ×2 (14:33→21:21)
[2022-10-26] MEDS: CLINDAMYCIN HCL 150 MG CAPSULE PO SCH ×2 (14:45→21:35)
--- NOTE | 2022-10-26 19:15 | NUR ---
MED SURGE OPEN NOTE: ALERT TO NAME AND TIME. REORIENTED TO PLACE AND SITUATION. UNLABORED BREATHING SATING AT 98 % AT ROOM AIR. IVF OF NS 75 ML/HR. IV SITE ON LEFT UPPER ARM G 22, PATENT NO S/S OF COMPLICATIONS. RLE WITH DRESSING ON. BILATERAL HALF SIDE RAILS UP X2. HOB ELEVATED SEMI FOWLERS POSITION. BED IN LOW POSITION, LOCKED AND EXIT ALARM ON. CALL LIGHT IN REACH. REFUSED WOUND CARE ON RLE, RISK VS BENEFITS EXPLAINED OFFERED THREE AND STILL REFUSEDL
[2022-10-26 20:00] VITALS: BP 93/55
[2022-10-26] MEDS: BENZTROPINE MESYLATE (1 MG) 1 MG TABLET PO SCH (21:22)
[2022-10-26] MEDS: risperiDONE-M 0.5 MG TAB.RAPDIS PO SCH (21:22)
[2022-10-26] MEDS ORDERED: CLINDAMYCIN HCL 150 MG CAPSULE ONE (21:31)
[2022-10-26] MEDS: ACETAMINOPHEN 325 MG TABLET PO PRN (21:37)
--- NOTE | 2022-10-27 01:00 | NUR ---
REPORT GIVEN TO JOSE DANIEL JEAN-BAPTISTE FOR CONTINUITY OF CARE.
[2022-10-27 04:00] VITALS: BP 107/59
[2022-10-27] MEDS ORDERED: CLINDAMYCIN HCL 150 MG CAPSULE ONE (04:56)
[2022-10-27] MEDS: CEFAZOLIN 2 GM in IV D5W 100 ML IV SCH ×3 (05:00→21:52)
[2022-10-27] MEDS: CLINDAMYCIN HCL 150 MG CAPSULE PO SCH ×3 (05:02→21:52)
--- NOTE | 2022-10-27 06:53 | NUR ---
MS RN CLOSING NOTE PATIENT REMAINS IN ROOM. UNLABORED BREATHING SATING AT 98% AT ROOM AIR. IVF OF NS 75 ML/HR. IV SITE ON LEFT UPPER ARM G 22, PATENT NO S/S OF COMPLICATIONS. BILATERAL HALF SIDE RAILS UP X2. ALL DUE MEDS GIVEN, KEPT DRY AND CLEAN, HOB ELEVATED SEMI FOWLERS POSITION. BED IN LOW POSITION, LOCKED AND EXIT ALARM ON. CALL LIGHT IN REACH. RLE WITH DRESSING ON, WOUND CARE DONE PT TOLERATED WELL, WILL ENDORSE TO AM SHIFT NURSE RN FOR CONTINUATION OF CARE.
[2022-10-27 07:16] LABS: BASOPHILS % (AUTO) 0.6 % (0.0-2.0); EOSINOPHILS % (AUTO) 0.3 % (0.0-6.0); HEMATOCRIT 22 % (33-45); HEMOGLOBIN 7.5 g/dL (11.5-14.8); LYMPHOCYTES # (AUTO) 0.9 K/uL (0.8-4.8); LYMPHOCYTES % (AUTO) 17.1 % (20.0-44.0); MEAN CORPUSCULAR HGB CONC 33 g/dl (31.0-36.0); MEAN CORPUSCULAR VOLUME 89 fL (82-100); MONOCYTES # (AUTO) 0.8 K/uL (0.1-1.30); MONOCYTES % (AUTO) 15.3 % (2.0-12.0); NEUTROPHILS # (AUTO) 3.4 K/uL (1.8-8.9); NEUTROPHILS % (AUTO) 66.7 % (43.0-81.0); PLATELET COUNT (AUTO) 288 K/uL (150-450); RED BLOOD CELL COUNT(AUTO) 2.52 MIL/uL (4.0-5.2)
[2022-10-27 08:00] VITALS: BP 109/61
[2022-10-27 08:33] LABS: CALCIUM, SERUM 7.2 mg/dL (8.5-10.1); CREATININE 0.7 mg/dL (0.6-1.3); MAGNESIUM 1.8 mg/dL (1.8-2.4); PHOSPHORUS 1.9 mg/dL (2.5-4.9); POTASSIUM 3.5 mmol/L (3.5-5.1)
[2022-10-27] MEDS: ENSURE ENLIVE 237 ML LIQUID (VANILLA) PO SCH ×3 (08:55→17:50)
[2022-10-27] MEDS: BENZTROPINE MESYLATE (1 MG) 1 MG TABLET PO SCH ×2 (09:02→21:53)
[2022-10-27] MEDS: risperiDONE-M 0.5 MG TAB.RAPDIS PO SCH ×2 (09:18→21:53)
[2022-10-27] MEDS: DAKINS FULL STRENGTH (0.5%) 480 ML BOTTLE TOP SCH (09:18)
[2022-10-27] MEDS: PANTOPRAZOLE 40 MG TABLET.DR PO SCH (09:19)
--- NOTE | 2022-10-27 11:04 | NUR ---
med surge rn opening note PATIENT REMAINS IN ROOM. UNLABORED BREATHING SATING AT 98% AT ROOM AIR. IV SITE ON LEFT UPPER ARM G 22, PATENT NO S/S OF COMPLICATIONS. ALL DUE MEDS GIVEN, KEPT DRY AND CLEAN, HOB ELEVATED SEMI FOWLERS POSITION. BED IN LOW POSITION, LOCKED AND EXIT ALARM ON. CALL LIGHT IN REACH. WILL CONTINUE MONITOR
[2022-10-27] MEDS ORDERED: NEUTRA PHOS 1 POWD.PACKET PO ONE (15:00)
[2022-10-27 15:53] LABS: BAND % (MANUAL) 3 % (0.0-5.0); LYMPHOCYTES % (MANUAL) 17 % (16-48); MONOCYTES % (MANUAL) 12 % (0-11.0); NEUTROPHILS % (MANUAL) 67 (42-76)
[2022-10-27 15:54] LABS: EOSINOPHILS % (MANUAL) 1 % (0-4)
[2022-10-27 16:00] VITALS: BP 108/60
--- NOTE | 2022-10-27 17:54 | NUR ---
patient refused to sign procedure and anaesthesia consents. GEOVANNA Ferreira notified, response was: "thats fine she doesn't have to sign consent she has no capacity to make medical decisions"
--- NOTE | 2022-10-27 18:46 | NUR ---
med surge rn closing note patient in bed, positioned comfortable, oxygenation 97% on room air, no pain complain. pt scheduled NPO after midnight for morning debridement procedure at a surgery. right foot dressing changed. bed is in low position, safety measures implemented.
--- NOTE | 2022-10-27 19:51 | NUR ---
RN OPENING NOTE PT A&OX2. SKIN IS WARM AND DRY. ODOR NOTED FROM RLE. RESPIRATIONS EVEN AND UNLABORED ON RA. AMILCAR MIDLINE INTACT AND RUNNING NS @ 75 ML/HR. PT TO REMAIN NPO AFTER MIDNIGHT. NO ACUTE SIGNS OF DISTRESS. BED LOCKED AND AT LOWEST LEVEL WITH 2 RAILS UP. CALL LIGHT WITHIN REACH.
[2022-10-27 20:00] VITALS: BP 101/71
[2022-10-28 04:00] VITALS: BP 110/83
[2022-10-28] MEDS: CLINDAMYCIN HCL 150 MG CAPSULE PO SCH ×3 (05:00→20:54)
[2022-10-28] MEDS: CEFAZOLIN 2 GM in IV D5W 100 ML IV SCH ×3 (05:09→20:52)
--- NOTE | 2022-10-28 07:10 | NUR ---
RN OPENING NOTE PT IS ALERT AND ORIENTED X1-2. PT IN BED. NO SIGNS OF PAIN OR DISCOMFORT AT THIS TIME. PT HAS RIGHT UPPER ARM MIDLINE. IV INTACT, PATENT AND FLUSHING WELL. PT ON ROOM AIR TOLERATING WELL. PT HAS RIGHT LOWER EXTREMITY DRESSING.DRESSING CLEAN AND INTACT.ALL SAFETY MEASURES IN PLACE.CALL LIGHT WITHIN REACH.BED LOCKED AT LOWEST POSITION. SIDE RAILS UP X2.
--- NOTE | 2022-10-28 07:19 | NUR ---
RN CLOSING NOTE PT A&OX2 AND CONFUSED. PT HAS BEEN NPO SINCE MIDNIGHT. AMILCAR 22G INTACT AND PATENT. SKIN IS WARM AND DRY. ODOR NOTED FROM RLE. SPOKE WITH GERMAN FROM SURGERY AND ORDERED TYPE AND SCREEN. SHE STATED THAT PROCEDURE MUST EITHER BE APPROVED BY SURGEON OR FLOOR PHYSICIAN FOR PROCEDURE TO PROCEED. NO ACUTE SIGNS OF DISTRESS. BED LOCKED AND AT LOWEST LEVEL. X2 RAILS UP AND CALL LIGHT WITHIN REACH.
[2022-10-28 07:29] LABS: BASOPHILS % (AUTO) 1.1 % (0.0-2.0); EOSINOPHILS % (AUTO) 0.7 % (0.0-6.0); HEMATOCRIT 21 % (33-45); HEMOGLOBIN 7.1 g/dL (11.5-14.8); LYMPHOCYTES # (AUTO) 1.2 K/uL (0.8-4.8); LYMPHOCYTES % (AUTO) 29.3 % (20.0-44.0); MEAN CORPUSCULAR HGB CONC 34 g/dl (31.0-36.0); MEAN CORPUSCULAR VOLUME 89 fL (82-100); MONOCYTES # (AUTO) 0.6 K/uL (0.1-1.30); NEUTROPHILS # (AUTO) 2.1 K/uL (1.8-8.9); NEUTROPHILS % (AUTO) 53.9 % (43.0-81.0); PLATELET COUNT (AUTO) 261 K/uL (150-450); RED BLOOD CELL COUNT(AUTO) 2.36 MIL/uL (4.0-5.2); WHITE BLOOD COUNT (AUTO) 3.9 K/uL (4.3-11.0)
[2022-10-28] MEDS: PANTOPRAZOLE 40 MG TABLET.DR PO SCH (07:30)
[2022-10-28 07:41] LABS: BILIRUBIN,TOTAL 0.2 mg/dL (0.2-1.0); CALCIUM, SERUM 7.4 mg/dL (8.5-10.1); CREATININE 0.6 mg/dL (0.6-1.3); MAGNESIUM 1.7 mg/dL (1.8-2.4); PHOSPHORUS 2.6 mg/dL (2.5-4.9); POTASSIUM 3.4 mmol/L (3.5-5.1); TOTAL PROTEIN, SERUM 5.6 g/dL (6.4-8.2)
[2022-10-28 07:56] LABS: ALBUMIN 1.3 g/dL (3.4-5.0)
[2022-10-28 08:00] VITALS: BP 111/63
[2022-10-28] MEDS: ENSURE ENLIVE 237 ML LIQUID (VANILLA) PO SCH ×3 (08:00→17:00)
[2022-10-28] MEDS: risperiDONE-M 0.5 MG TAB.RAPDIS PO SCH ×2 (08:13→20:55)
[2022-10-28] MEDS: BENZTROPINE MESYLATE (1 MG) 1 MG TABLET PO SCH ×2 (08:13→20:54)
--- NOTE | 2022-10-28 08:30 | NUR ---
PT WENT UP FOR RIGHT FOOT DEBRIDEMENT SURGERY.
[2022-10-28] MEDS ORDERED: BUPIVACAINE 0.5 % PF 150 MG/30 ML VIAL ONE (09:29)
[2022-10-28] MEDS ORDERED: LIDOCAINE HCL/MPF 1% 30 ML VIAL IJ ONE (09:30)
[2022-10-28] MEDS ORDERED: FENTANYL PF 100MCG/2ML AMPUL ONE (10:29)
[2022-10-28] MEDS: DAKINS FULL STRENGTH (0.5%) 480 ML BOTTLE TOP SCH (11:34)
[2022-10-28] MEDS ORDERED: POTASSIUM CHLORIDE 20 MEQ TAB.PRT.SR PO SCH (12:00)
[2022-10-28 12:12] LABS: BAND % (MANUAL) 16 % (0.0-5.0); LYMPHOCYTES % (MANUAL) 30 % (16-48); MONOCYTES % (MANUAL) 14 % (0-11.0); NEUTROPHILS % (MANUAL) 40 (42-76)
[2022-10-28] MEDS ORDERED: HYDROMORPHONE 1 MG/1 ML DISP.SYRIN ONE (12:28)
--- NOTE | 2022-10-28 13:30 | NUR ---
RN NOTE PT RETURNED FROM SURGERY. VITAL SIGNS WITHIN NORMAL RANGE. NO SIGNS OF PAIN OR DISCOMFORT
[2022-10-28] MEDS: Magnesium 1GM/D5W 100ML PREMIX 100 ML IV SCH ×2 (13:59→19:02)
[2022-10-28] MEDS ORDERED: POTASSIUM CHLORIDE 20 MEQ POWDER PACKET PO ONE (14:00)
[2022-10-28] MEDS: IV NS 0.9% 1,000 ML IV PRN (14:55)
--- NOTE | 2022-10-28 15:01 | NUR ---
called pharmacy to switch potassium chloride to tablet. pt cant swallow whole pills, asked to change to powder packet.patti said ok
[2022-10-28] MEDS ORDERED: SOD FERRIC GLUC 125 MG in IV NS 0.9% 100 ML IV SCH (15:30)
[2022-10-28] MEDS: IRON SUCROSE COMPLEX 200 MG in IV NS 0.9% 100 ML IV SCH (18:32)
--- NOTE | 2022-10-28 19:00 | NUR ---
RN NOTE CALLED PHARMACY TO ASK IF CAN BRING UP MAGNESIUM IV. PHARMACY BROUGHT UP NEW BAG AND ADMINSTERED TO PATIENT
[2022-10-28 20:00] VITALS: BP 95/54
--- NOTE | 2022-10-28 20:00 | NUR ---
RN NOTES RECEIVED REPORT FROM REGISTRY. PATIENT IN BED A/O X2 ABLE TO MAKE NEEDS KNOWN. ON ROOM AIR SATING 99% NO SOB NO DISTRESS NOTED AT THIS TIME. WITH IV ACCESS AT R UA MIDLINE PATENT FLUSHES WELL WITH IVF RUNNING NS@ 75 ML/HR. S/P DEBRIDEMENT NO BLEEDING NOTED AT THE SITE. ALL SAFETY MEASURES IN PLACE AT ALL TIMES. HOB ELEVATED. CALL LIGHT WITHIN REACH. WILL CLOSELY MONITOR THE PATIENT
--- NOTE | 2022-10-28 20:36 | NUR ---
RN CLOSING NOTE PT IS ALERT AND ORIENTED X1-2. PT IN BED. NO SIGNS OF PAIN OR DISCOMFORT AT THIS TIME. PT HAS RIGHT UPPER ARM MIDLINE. IV INTACT, PATENT AND FLUSHING WELL. PT ON ROOM AIR TOLERATING WELL. PT HAS RIGHT LOWER EXTREMITIY DRESSING.DRESSING CLEAN AND INTACT.ALL SAFETY MEASURES IN PLACE.CALL LIGHT WITHIN REACH.BED LOCKED AT LOWEST POSITION. SIDE RAILS UP X2. ENDORSED TO ASSESSMENT DIRECTOR RN FOR CONTINUITY OF CARE
[2022-10-29] VITALS (13 sets, daily range): BP systolic 91–113; BP diastolic 45–78
[2022-10-29] MEDS: CLINDAMYCIN HCL 150 MG CAPSULE PO SCH (05:28)
[2022-10-29] MEDS: CEFAZOLIN 2 GM in IV D5W 100 ML IV SCH ×3 (05:28→21:09)
[2022-10-29 06:02] LABS: BASOPHILS # (AUTO) 0.1 K/uL (0.0-0.2); BASOPHILS % (AUTO) 1.1 % (0.0-2.0); EOSINOPHILS % (AUTO) 0.7 % (0.0-6.0); LYMPHOCYTES % (AUTO) 20.8 % (20.0-44.0); MEAN CORPUSCULAR HGB CONC 35 g/dl (31.0-36.0); MEAN CORPUSCULAR VOLUME 89 fL (82-100); MONOCYTES # (AUTO) 0.7 K/uL (0.1-1.30); MONOCYTES % (AUTO) 14.5 % (2.0-12.0); NEUTROPHILS % (AUTO) 62.9 % (43.0-81.0); PLATELET COUNT (AUTO) 207 K/uL (150-450); WHITE BLOOD COUNT (AUTO) 4.7 K/uL (4.3-11.0)
[2022-10-29 06:15] LABS: RED BLOOD CELL COUNT(AUTO) 1.74 MIL/uL (4.0-5.2)
[2022-10-29 06:18] LABS: CALCIUM, SERUM 7.2 mg/dL (8.5-10.1); CREATININE 0.5 mg/dL (0.6-1.3); PHOSPHORUS 2.7 mg/dL (2.5-4.9); POTASSIUM 3.6 mmol/L (3.5-5.1)
[2022-10-29 06:23] LABS: HEMATOCRIT 16 % (33-45); HEMOGLOBIN 5.4 g/dL (11.5-14.8)
--- NOTE | 2022-10-29 06:25 | NUR ---
RN NOTES SOLOMONER FROM LAB CALL WITH CRITICAL RESULT HGB 5.4, HCT 16. DR BRENNER INFORMED [facility] ORDER TO TRANSFUSE 2 UNITS PRBC.
--- NOTE | 2022-10-29 07:15 | NUR ---
RN OPENING NOTE PT IS ALERT AND ORIENTED X1-2. PT IN BED. NO SIGNS OF PAIN OR DISCOMFORT AT THIS TIME. PT HAS RIGHT UPPER ARM MIDLINE. IV INTACT, PATENT AND FLUSHING WELL. PT ON ROOM AIR TOLERATING WELL. PT HAS RIGHT LOWER EXTREMITY DRESSING.DRESSING CLEAN,DRY AND INTACT.ALL SAFETY MEASURES IN PLACE.CALL LIGHT WITHIN REACH.BED LOCKED AT LOWEST POSITION. SIDE RAILS UP X2.
[2022-10-29] MEDS: ENSURE ENLIVE 237 ML LIQUID (VANILLA) PO SCH ×3 (08:00→17:00)
[2022-10-29] MEDS: risperiDONE-M 0.5 MG TAB.RAPDIS PO SCH ×2 (08:10→21:08)
[2022-10-29] MEDS: BENZTROPINE MESYLATE (1 MG) 1 MG TABLET PO SCH ×2 (08:10→21:08)
[2022-10-29] MEDS: CLINDAMYCIN 900 MG in IV D5W 50 ML IV SCH ×3 (08:10→21:09)
[2022-10-29] MEDS: PANTOPRAZOLE 40 MG TABLET.DR PO SCH (08:10)
[2022-10-29] MEDS: DAKINS FULL STRENGTH (0.5%) 480 ML BOTTLE TOP SCH (08:12)
--- NOTE | 2022-10-29 11:30 | NUR ---
COLLECTIONS TECHNICIAN NOTES PLACED A CALL VIA [facility] EX[employer] TO DR. SNEHA VILLANUEVA TO NOTIFY THAT PATIENT IS REFUSING BLOOD TRANSFUSION DESPITE EXPLAINING THE REASON. WAITING FOR FURTHER ORDER. Addendum: 10/29/22 at 1152 by STEPHANIE MCCARTHY RN ADDENDUM; PER DR. SNEHA VILLANUEVA, WE CAN NOT DO ANYTHING IF PATIENT REFUSE BLOOD TRANSFUSION
--- NOTE | 2022-10-29 11:31 | NUR ---
rn note notified dr. orville badillo that pt is refusing blood transfusion.
--- NOTE | 2022-10-29 11:36 | NUR ---
rn note notified dr. badillo that patient refusing blood transfusion despite explaining it to her. responded if she refused we cant do anything
[2022-10-29] MEDS: IV NS 0.9% 1,000 ML IV PRN (12:07)
[2022-10-29 12:09] LABS: BAND % (MANUAL) 16 % (0.0-5.0); LYMPHOCYTES % (MANUAL) 25 % (16-48); NEUTROPHILS % (MANUAL) 54 (42-76)
[2022-10-29 12:10] LABS: MONOCYTES % (MANUAL) 5 % (0-11.0)
--- NOTE | 2022-10-29 14:00 | NUR ---
rn note patient has sacral wound.refused for dressing to be changed.educated about benefits.pt still refused
--- NOTE | 2022-10-29 14:00 | NUR ---
RN NOTE EMERGENCY CONSENT FOR BLOOD TRANSFUSION SIGNED AND PLACED IN PATIENT CHART
--- NOTE | 2022-10-29 14:00 | NUR ---
rn note spoke with patient about blood transfusion.
--- NOTE | 2022-10-29 17:11 | NUR ---
rn note blood transfusion started before blood tranfusion bp 102/56, hr 82, 02 08%, temp 98.0 pt comfortable, no complaints of pain or discomfort
--- NOTE | 2022-10-29 17:31 | NUR ---
rn note 15 min after bp transfusion bp 95/54, 02 98, temp 98.1, rr 16, hr 85. no allergic reaction, pt comfortable. no pain or discomofrt
--- NOTE | 2022-10-29 18:21 | NUR ---
rn note temp 97.1, bp 107/55, hr 89, 02 98%, temp 98.1, rr 16 patient tolerating well at this time.
--- NOTE | 2022-10-29 18:56 | NUR ---
rn note 1 hour after blood tranfusion vital signs bp 94/51, hr 86,02 100%, temp 98.0, rr 16 pt comfortable. no pain or discomfort at this time. no allergic reaction noted at this time. pt tolerating well at this time
--- NOTE | 2022-10-29 19:00 | NUR ---
rn note spoke with blood bank.said they would call when blood is ready for pickup. endorsed to assembler 1st shift rn to follow up
--- NOTE | 2022-10-29 19:30 | NUR ---
RN NOTES RECEIVED REPORT FROM MORNING RN. PATIENT IN BED A/O X2 ABLE TO MAKE NEEDS KNOWN. ON ROOM AIR SATING 99% NO SOB NO DISTRESS NOTED AT THIS TIME. WITH IV ACCESS AT R UA MIDLINE PATENT FLUSHES WELL WITH ONGOING BLOOD TRANSFUSION NO TRANSFUSION REACTION NOTED. ALL SAFETY MEASURES IN PLACE AT ALL TIMES. HOB ELEVATED. CALL LIGHT WITHIN REACH. WILL CLOSELY MONITOR THE PATIENT
--- NOTE | 2022-10-29 19:43 | NUR ---
RN closing NOTE PT IS ALERT AND ORIENTED X1-2. PT IN BED. NO SIGNS OF PAIN OR DISCOMFORT AT THIS TIME. PT HAS RIGHT UPPER ARM MIDLINE. IV INTACT, PATENT AND FLUSHING WELL. PT ON ROOM AIR TOLERATING WELL above 92%.PT HAS RIGHT LOWER EXTREMITY DRESSING.DRESSING CLEAN,DRY AND INTACT.ALL SAFETY MEASURES IN PLACE.CALL LIGHT WITHIN REACH.BED LOCKED AT LOWEST POSITION. SIDE RAILS UP X2. endorsed to home appliances mechanic rn for continue of care
--- NOTE | 2022-10-29 19:45 | NUR ---
rn note patient currently getting blood transfusion.endorsed to shift foreman rn.
--- NOTE | 2022-10-29 20:42 | NUR ---
RN NOTES BLOOD TRANSFUSION COMPLETED NO TRANSFUSION REACTION NOTED.
--- NOTE | 2022-10-29 22:27 | NUR ---
RN NOTES STARTED 2ND UNIT OF PRBC TYPE A POS. VITAL SIGNS TAKEN AND RECORDED WILL CLOSELY MONTOR THE PATIENT
[2022-10-30 00:12] VITALS: BP 94/55
[2022-10-30 01:22] VITALS: BP 98/62
[2022-10-30 04:00] VITALS: BP 97/50
[2022-10-30] MEDS: CEFAZOLIN 2 GM in IV D5W 100 ML IV SCH ×3 (05:32→21:19)
[2022-10-30] MEDS: CLINDAMYCIN 900 MG in IV D5W 50 ML IV SCH ×3 (05:35→22:00)
[2022-10-30 06:27] LABS: BASOPHILS % (AUTO) 0.6 % (0.0-2.0); EOSINOPHILS % (AUTO) 0.7 % (0.0-6.0); HEMATOCRIT 25 % (33-45); HEMOGLOBIN 8.3 g/dL (11.5-14.8); LYMPHOCYTES # (AUTO) 1.2 K/uL (0.8-4.8); LYMPHOCYTES % (AUTO) 21.8 % (20.0-44.0); MEAN CORPUSCULAR HGB CONC 33 g/dl (31.0-36.0); MEAN CORPUSCULAR VOLUME 89 fL (82-100); MONOCYTES % (AUTO) 17.6 % (2.0-12.0); NEUTROPHILS # (AUTO) 3.2 K/uL (1.8-8.9); NEUTROPHILS % (AUTO) 59.3 % (43.0-81.0); PLATELET COUNT (AUTO) 205 K/uL (150-450); RED BLOOD CELL COUNT(AUTO) 2.81 MIL/uL (4.0-5.2); WHITE BLOOD COUNT (AUTO) 5.5 K/uL (4.3-11.0)
[2022-10-30 07:01] LABS: CALCIUM, SERUM 7.3 mg/dL (8.5-10.1); CREATININE 0.6 mg/dL (0.6-1.3); MAGNESIUM 1.8 mg/dL (1.8-2.4); PHOSPHORUS 2.5 mg/dL (2.5-4.9); POTASSIUM 3.6 mmol/L (3.5-5.1)
--- NOTE | 2022-10-30 07:10 | NUR ---
RN NOTE RECEIVED PATIENT IN BED RESTING ALERT ORIENTED X2 VERBALLY RESPONSIVE ON ROOM AIR O2:96% IV SITE IS ON RIGHT UPPER ARM MIDLINE INTACT PATENT,ON IV HYDRATION NS 75CC/HR.CONTIENT BOWEL/BLADDER,SAFETY MEASURE IMPLEMENT BED IN LOW POSITION AND LOCKED,CALL LIGHT WITHIN REACH CONTINUE TO MONITOR
--- NOTE | 2022-10-30 07:18 | NUR ---
RN NOTES PATIENT REMAINS STABLE NO SIGNIFICANT CHANGES IN HEALTH STATUS. ALL DUE MEDS GIVEN ORDERED. PATIENT REFUSED WOUND CARE AND DRESSING. WILL ENDORSED TO MORNING SHIFT FOR NALLELY
[2022-10-30] MEDS: PANTOPRAZOLE 40 MG TABLET.DR PO SCH (07:59)
--- NOTE | 2022-10-30 08:00 | NUR ---
PATIENT IS AWAKE,ALERT,ORIENTEDX3, NO COMPLAINT OF PAIN, NO SIGNS OF IN DISTRESS.
[2022-10-30] MEDS: BENZTROPINE MESYLATE (1 MG) 1 MG TABLET PO SCH ×2 (08:06→21:18)
[2022-10-30] MEDS: risperiDONE-M 0.5 MG TAB.RAPDIS PO SCH ×2 (08:07→21:18)
[2022-10-30] MEDS: ENSURE ENLIVE 237 ML LIQUID (VANILLA) PO SCH ×3 (08:09→17:02)
[2022-10-30] MEDS: DAKINS FULL STRENGTH (0.5%) 480 ML BOTTLE TOP SCH (09:22)
[2022-10-30 12:00] VITALS: BP 97/61
[2022-10-30 12:46] LABS: BAND % (MANUAL) 16 % (0.0-5.0); EOSINOPHILS % (MANUAL) 1 % (0-4); LYMPHOCYTES % (MANUAL) 21 % (16-48); MONOCYTES % (MANUAL) 13 % (0-11.0); NEUTROPHILS % (MANUAL) 49 (42-76)
[2022-10-30] MEDS: IRON SUCROSE COMPLEX 200 MG in IV NS 0.9% 100 ML IV SCH (15:15)
--- NOTE | 2022-10-30 18:29 | NUR ---
RN NOTE PATIENT REMAINS ALERT ORIENTED X2 VERBALLY RESPONSIVE ON ROOM NO SOB NOT ACUTE DISTRESS NOTED,ALL DUE MEDS GIVEN MD ORDERED KEPT CLEAN AND DRY ALL THE TIME,ALL NEED MET WILL ENDORSE NEXT COMING SHIFT FOR CONTINUATION OF CARE,.
--- NOTE | 2022-10-30 19:54 | NUR ---
RN OPENING NOTES RECEIVED PT IN BED, ASLEEP ON RIGHT SIDE, AWAKENS TO VERBAL STIMULI. AOx3, ABLE TO MAKE NEEDS KNOWN. ON RA AND TOLERATING WELL. NO SOB NOTED. NO S/SX OF RESPIRATORY DISTRESS NOTED. IV ACCESS IN BERNIE MIDLINE #18G RUNNING NS @ 75 ML/HR. SAFETY PRECAUTIONS IN PLACE: BED IN LOWEST, LOCKED POSITION, SIDERAILS UPx2, AND BRAKES ON. TABLE AND CALL LIGHT WITHIN REACH. ALL NEEDS MET AT THIS TIME.
[2022-10-30 20:00] VITALS: BP 92/48
[2022-10-30] MEDS ORDERED: risperiDONE-M 0.5 MG TAB.RAPDIS PO PRN (23:00)
[2022-10-31 04:00] VITALS: BP 95/57
[2022-10-31] MEDS: CEFAZOLIN 2 GM in IV D5W 100 ML IV SCH ×3 (04:18→21:11)
[2022-10-31] MEDS: IV NS 0.9% 1,000 ML IV PRN ×2 (04:18→19:30)
[2022-10-31] MEDS: CLINDAMYCIN 900 MG in IV D5W 50 ML IV SCH ×3 (05:36→21:11)
[2022-10-31 06:41] LABS: BASOPHILS % (AUTO) 0.6 % (0.0-2.0); EOSINOPHILS % (AUTO) 1.5 % (0.0-6.0); HEMATOCRIT 25 % (33-45); HEMOGLOBIN 8.3 g/dL (11.5-14.8); LYMPHOCYTES # (AUTO) 1.2 K/uL (0.8-4.8); MEAN CORPUSCULAR HGB CONC 33 g/dl (31.0-36.0); MEAN CORPUSCULAR VOLUME 89 fL (82-100); MONOCYTES # (AUTO) 0.8 K/uL (0.1-1.30); MONOCYTES % (AUTO) 17.2 % (2.0-12.0); NEUTROPHILS # (AUTO) 2.6 K/uL (1.8-8.9); NEUTROPHILS % (AUTO) 55.7 % (43.0-81.0); PLATELET COUNT (AUTO) 204 K/uL (150-450); RED BLOOD CELL COUNT(AUTO) 2.78 MIL/uL (4.0-5.2); WHITE BLOOD COUNT (AUTO) 4.7 K/uL (4.3-11.0)
[2022-10-31 07:08] LABS: CREATININE 0.6 mg/dL (0.6-1.3); MAGNESIUM 1.5 mg/dL (1.8-2.4); PHOSPHORUS 2.7 mg/dL (2.5-4.9); POTASSIUM 3.3 mmol/L (3.5-5.1)
--- NOTE | 2022-10-31 07:08 | NUR ---
RN CLOSING NOTES PT IN BED, ASLEEP, AWAKENS TO VERBAL STIMULI. AOx3, ABLE TO MAKE NEEDS KNOWN. ON RA AND TOLERATING WELL. NO SOB NOTED. NO S/SX OF RESPIRATORY DISTRESS NOTED. IV ACCESS IN BERNIE MIDLINE #18G RUNNING NS @ 75 ML/HR. ALL ORDERS CARRIED OUT. ALL NEEDS MET. PT KEPT CLEAN AND DRY. SAFETY PRECAUTIONS IN PLACE: BED IN LOWEST, LOCKED POSITION, SIDERAILS UPx2, AND BRAKES ON. TABLE AND CALL LIGHT WITHIN REACH. WILL ENDORSE TO ONCOMING SHIFT FOR NALLELY.
--- NOTE | 2022-10-31 07:45 | NUR ---
RN CLOSING NOTES PT IN BED, ASLEEP, AWAKENS TO VERBAL STIMULI. AOx3, ABLE TO MAKE NEEDS KNOWN. ON RA AND TOLERATING WELL. NO SOB NOTED. NO S/SX OF RESPIRATORY DISTRESS NOTED. SAFETY PRECAUTIONS IN PLACE: BED IN LOWEST, LOCKED POSITION, SIDERAILS UPx2, AND BRAKES ON. TABLE AND CALL LIGHT WITHIN REACH. WILL CONTINUE PLAN OF CARE. Addendum: 10/31/22 at 1850 by CARLITA CORONEL RN RN OPENING NOTES
[2022-10-31] MEDS: BENZTROPINE MESYLATE (1 MG) 1 MG TABLET PO SCH ×2 (08:13→21:10)
[2022-10-31] MEDS: PANTOPRAZOLE 40 MG TABLET.DR PO SCH (08:13)
[2022-10-31] MEDS: DAKINS FULL STRENGTH (0.5%) 480 ML BOTTLE TOP SCH (08:14)
[2022-10-31] MEDS: risperiDONE-M 0.5 MG TAB.RAPDIS PO SCH ×2 (08:14→21:10)
[2022-10-31] MEDS: ENSURE ENLIVE 237 ML LIQUID (VANILLA) PO SCH ×3 (08:14→16:08)
[2022-10-31] MEDS ORDERED: POTASSIUM CHLORIDE 20 MEQ TAB.PRT.SR PO SCH (10:00)
[2022-10-31] MEDS ORDERED: MAGNESIUM OXIDE 400 MG TABLET PO ONE (11:00)
[2022-10-31 12:00] VITALS: BP 101/50
[2022-10-31 12:03] LABS: EOSINOPHILS % (MANUAL) 1 % (0-4); LYMPHOCYTES % (MANUAL) 18 % (16-48); MONOCYTES % (MANUAL) 15 % (0-11.0); NEUTROPHILS % (MANUAL) 66 (42-76)
--- NOTE | 2022-10-31 18:50 | NUR ---
RN CLOSING NOTES PT IN BED, ASLEEP, AWAKENS TO VERBAL STIMULI. AOx3, ABLE TO MAKE NEEDS KNOWN. ON RA AND TOLERATING WELL. NO SOB NOTED. NO S/SX OF RESPIRATORY DISTRESS NOTED. IV ACCESS IN BERNIE MIDLINE AND RIGHT WRIST NOTED PATENT AND INTACT, FLUSHES WELL. NOTED WITH NS @ 75 ML/HR. PT KEPT CLEAN AND DRY. DRESSING ON RLE NOTED C/D/I. SAFETY PRECAUTIONS IN PLACE: BED IN LOWEST, LOCKED POSITION, SIDERAILS UPx2, AND BRAKES ON. TABLE AND CALL LIGHT WITHIN REACH. WILL ENDORSE TO ONCOMING SHIFT FOR NALLELY.
[2022-10-31 20:00] VITALS: BP 102/59
--- NOTE | 2022-10-31 23:17 | NUR ---
MS RN OPENING NOTE PT RECEIVED IN BED, AWAKE, A&O X4, CALM, COOPERATIVE. PT ON RA WITH CURRENT O2SAT OF 98%; NO S/S OF RESP DISTRESS, NO SOB OR COUGH, NON-LABORED AND EQUAL BREATHING. VSS, WILL CONTINUE TO MONITOR THROUGHOUT THE NIGHT NEEDED. IV ACCESS ON RAC AND RIGHT HAND 22G, INTACT AND PATENT, FLUSHES EASILY WITH NO RESISTANCE; NS INFUSING AT 75 ML/HR. BED IN LOWEST POSITION, CALL LIGHT WITHIN REACH, SIDE RAILS UP X2. WILL CONTINUE TO MONITOR THROUGHOUT THE NIGHT.
--- NOTE | 2022-11-01 02:36 | NUR ---
RN NOTE PT REFUSED TO HAVE WOUND CARE DONE
[2022-11-01 04:00] VITALS: BP 118/55
[2022-11-01] MEDS: CEFAZOLIN 2 GM in IV D5W 100 ML IV SCH (05:07)
[2022-11-01] MEDS: CLINDAMYCIN 900 MG in IV D5W 50 ML IV SCH (05:07)
[2022-11-01 06:42] LABS: BASOPHILS % (AUTO) 0.6 % (0.0-2.0); EOSINOPHILS % (AUTO) 1.2 % (0.0-6.0); HEMATOCRIT 27 % (33-45); HEMOGLOBIN 8.9 g/dL (11.5-14.8); LYMPHOCYTES # (AUTO) 1.3 K/uL (0.8-4.8); LYMPHOCYTES % (AUTO) 23.6 % (20.0-44.0); MEAN CORPUSCULAR HGB CONC 34 g/dl (31.0-36.0); MEAN CORPUSCULAR VOLUME 90 fL (82-100); MONOCYTES # (AUTO) 0.7 K/uL (0.1-1.30); MONOCYTES % (AUTO) 13.7 % (2.0-12.0); NEUTROPHILS # (AUTO) 3.3 K/uL (1.8-8.9); NEUTROPHILS % (AUTO) 60.9 % (43.0-81.0); PLATELET COUNT (AUTO) 232 K/uL (150-450); RED BLOOD CELL COUNT(AUTO) 2.95 MIL/uL (4.0-5.2); WHITE BLOOD COUNT (AUTO) 5.4 K/uL (4.3-11.0)
--- NOTE | 2022-11-01 06:48 | NUR ---
MS RN CLOSING NOTE PT REMAINS IN BED, ASLEEP BUT EASILY AROUSABLE, A&O X4, CALM, COOPERATIVE. CONTINUES TO BE ON RA WITH O2SAT STABLE AT 98%; NO S/S OF RESP DISTRESS, NO SOB OR COUGH, NON-LABORED AND EQUAL BREATHING. VSS THROUGHOUT THE NIGHT WITH NO SIGNIFICANT CHANGES. IV ACCESS ON RAC AND RIGHT HAND 22G, INTACT AND PATENT, FLUSHES EASILY WITH NO RESISTANCE; NS INFUSING AT 75 ML/HR. ALL DUE MEDS ADMINISTERED DURING THE NIGHT. PT REFUSED WOUND CARE. BED IN LOWEST POSITION, CALL LIGHT WITHIN REACH, SIDE RAILS UP X2. WILL ENDORSE TO DAYSHIFT NURSE TO CONTINUE CARE.
[2022-11-01 07:02] LABS: CALCIUM, SERUM 7.6 mg/dL (8.5-10.1); CREATININE 0.6 mg/dL (0.6-1.3); MAGNESIUM 1.6 mg/dL (1.8-2.4); PHOSPHORUS 2.9 mg/dL (2.5-4.9); POTASSIUM 3.8 mmol/L (3.5-5.1)
--- NOTE | 2022-11-01 07:25 | NUR ---
RN note Received patient in bed without active complaint. Noted 1+ pitting edema in lower limbs. IV site is dry and intact with IVF running at 25mL/hr. Call sidhu is placed within reach. Bed is locked and placed in the lowest position. All safety measures have been implemented. Will continue care and monitoring.
[2022-11-01 08:00] VITALS: BP 100/57
[2022-11-01] MEDS: PANTOPRAZOLE 40 MG TABLET.DR PO SCH (08:00)
[2022-11-01] MEDS: CEFEPIME 2 GM in IV D5W 100 ML IV SCH ×2 (08:31→16:11)
[2022-11-01] MEDS: risperiDONE-M 0.5 MG TAB.RAPDIS PO SCH ×2 (08:31→21:23)
[2022-11-01] MEDS: ENSURE ENLIVE 237 ML LIQUID (VANILLA) PO SCH ×3 (08:31→17:00)
[2022-11-01] MEDS: BENZTROPINE MESYLATE (1 MG) 1 MG TABLET PO SCH ×2 (08:31→21:23)
[2022-11-01] MEDS: DAKINS FULL STRENGTH (0.5%) 480 ML BOTTLE TOP SCH (08:32)
[2022-11-01] MEDS: HYDROCODONE/APAP 5/325MG TABLET PO PRN ×2 (08:41→14:47)
--- NOTE | 2022-11-01 11:00 | NUR ---
ESTIVEN notes NS dressing was done to right leg wound. Removed old dressing(xeroform and gauze packed in the upper calf cavity). Pungent smell was present during dressing with minimal bleeding. Observed slough-like tissue over the foot close to the medial malleolus. Wounds are covered by xeroform and abdominal pads, creped with gauze bandage and acrix. Hydrocodone has been administered 1 hour prior wound dressing. Pain was reported as 8-9/10 during dressing. Will continue administering hydrocodone for pain control today. Offered morphine injection but patient refused. Addendum: 11/01/22 at 1320 by BRODERICK COX RN clinical photos have been taken.
[2022-11-01] MEDS ORDERED: Magnesium 1GM/D5W 100ML PREMIX 100 ML IV SCH (12:00)
[2022-11-01] MEDS ORDERED: MAGNESIUM OXIDE 400 MG TABLET PO ONE (12:00)
[2022-11-01 16:00] VITALS: BP 105/58
[2022-11-01] MEDS: IRON SUCROSE COMPLEX 200 MG in IV NS 0.9% 100 ML IV SCH (16:13)
[2022-11-01] MEDS: IV NS 0.9% 1,000 ML IV PRN (16:38)
--- NOTE | 2022-11-01 19:30 | NUR ---
RN note Patient is resting in bed without active complaint. Lower limbs are elevated. IV site is dry and intact with NS running at 75mL/hr. Call sidhu is placed within reach. Bed is locked and placed in the lowest position. All safety measures have been implemented. Will continue care and monitoring.
[2022-11-01 20:00] VITALS: BP 99/55
--- NOTE | 2022-11-01 21:58 | NUR ---
MS RN OPENING NOTE PT RECEIVED IN BED, AWAKE, A&O X4. PT ON RA WITH CURRENT O2SAT OF 99%; NO S/S OF RESP DISTRESS, NO SOB OR COUGH, NON-LABORED AND EQUAL BREATHING. VSS, WILL CONTINUE TO MONITOR THROUGHOUT THE NIGHT NEEDED. IV ACCESS ON BERNIE AND RIGHT HAND 22G, INTACT AND PATENT, FLUSHES EASILY WITH NO RESISTANCE; NS INFUSING AT 75 ML/HR. BED IN LOWEST POSITION, CALL LIGHT WITHIN REACH, SIDE RAILS UP X2. WILL CONTINUE TO MONITOR THROUGHOUT THE NIGHT.
[2022-11-02] MEDS: CEFEPIME 2 GM in IV D5W 100 ML IV SCH ×4 (00:40→23:40)
--- NOTE | 2022-11-02 03:04 | NUR ---
RN NOTE PT REFUSED BED BATH AND WOUND CARE. LINENS CHANGED.
[2022-11-02 04:00] VITALS: BP 91/50
[2022-11-02] MEDS: IV NS 0.9% 1,000 ML IV PRN ×2 (05:41→20:05)
--- NOTE | 2022-11-02 06:44 | NUR ---
MS RN CLOSING NOTE PT REMAINS IN BED, ASLEEP BUT EASILY AROUSABLE, A&O X4, CALM, COOPERATIVE. CONTINUES TO BE ON RA WITH O2SAT STABLE AT 99%; NO S/S OF RESP DISTRESS, NO SOB OR COUGH, NON-LABORED AND EQUAL BREATHING. VSS THROUGHOUT THE NIGHT WITH NO SIGNIFICANT CHANGES. IV ACCESS ON BERNIE AND RIGHT HAND 22G, INTACT AND PATENT, FLUSHES EASILY WITH NO RESISTANCE; NS INFUSING AT 75 ML/HR. ALL DUE MEDS ADMINISTERED DURING THE NIGHT. PT REFUSED WOUND CARE AND BED BATH, BUT LINENS WERE CHANGED. BED IN LOWEST POSITION, CALL LIGHT WITHIN REACH, SIDE RAILS UP X2. WILL ENDORSE TO DAYSHIFT NURSE TO CONTINUE CARE.
--- NOTE | 2022-11-02 07:25 | NUR ---
SHIPPING AND RECEIVING WEIGHER OPENING NOTES: RECEIVED PATIENT IN BED ASLEEP BUT EASILY AROUSES TO VOICE AND TACTILE STIMULI. PATINE HAS NO SOB NOTED, BREATHING EVEN AND UNLABORED. ON RA WITH OXYGEN SATURATION OF 99%. IV ACCESS ON RIGHT HAND WITH NS RUNNING @ 75 ML/HR, IV SITE WITH NO S/S INFILTRATION NOTED. RIGHT UPPER ARM MIDLINE INTACT, PATENT AND FLUSHES WELL. NO C/O PAIN OR DISCOMFORT AT THIS TIME. ALL SAFETY MEASURES IN PLACE. CALL LIGHT WITHIN REACH. BED LOCKED AND IN LOWEST POSITION WITH BED ALARM ON. WILL CONTINUE TO MONITOR PATIENT THROUGHOUT SHIFT.
[2022-11-02] MEDS: ENSURE ENLIVE 237 ML LIQUID (VANILLA) PO SCH ×3 (07:40→17:06)
[2022-11-02] MEDS: PANTOPRAZOLE 40 MG TABLET.DR PO SCH (07:40)
[2022-11-02] MEDS: risperiDONE-M 0.5 MG TAB.RAPDIS PO SCH ×2 (07:40→22:05)
[2022-11-02 07:46] LABS: EOSINOPHILS % (AUTO) 1.6 % (0.0-6.0); HEMATOCRIT 27 % (33-45); HEMOGLOBIN 8.9 g/dL (11.5-14.8); LYMPHOCYTES # (AUTO) 1.4 K/uL (0.8-4.8); LYMPHOCYTES % (AUTO) 31.4 % (20.0-44.0); MEAN CORPUSCULAR HGB CONC 33 g/dl (31.0-36.0); MEAN CORPUSCULAR VOLUME 90 fL (82-100); MONOCYTES # (AUTO) 0.7 K/uL (0.1-1.30); NEUTROPHILS # (AUTO) 2.3 K/uL (1.8-8.9); PLATELET COUNT (AUTO) 247 K/uL (150-450); RED BLOOD CELL COUNT(AUTO) 2.96 MIL/uL (4.0-5.2); WHITE BLOOD COUNT (AUTO) 4.5 K/uL (4.3-11.0)
[2022-11-02 07:56] LABS: CALCIUM, SERUM 7.7 mg/dL (8.5-10.1); CREATININE 0.6 mg/dL (0.6-1.3); POTASSIUM 3.6 mmol/L (3.5-5.1)
[2022-11-02] MEDS: BENZTROPINE MESYLATE (1 MG) 1 MG TABLET PO SCH ×2 (08:43→22:05)
[2022-11-02] MEDS: DAKINS FULL STRENGTH (0.5%) 480 ML BOTTLE TOP SCH (08:45)
--- NOTE | 2022-11-02 09:50 | NUR ---
TRIED TO CHANGE THE DRESSING FOR THE PATIENT BUT PATIENT DECLINED. WILL TRY AGAIN LATER.
[2022-11-02] MEDS ORDERED: IV NS 0.9% 500 ML IV ONE (10:00)
--- NOTE | 2022-11-02 11:22 | NUR ---
PHYSICAL THERAPIST CAME BUT PATIENT DECLINED TREATMENT RIGHT NOW, WILL COME BACK LATER.
[2022-11-02 12:00] VITALS: BP 102/59
[2022-11-02] MEDS: Magnesium 1GM/D5W 100ML PREMIX 100 ML IV SCH ×2 (13:22→14:59)
--- NOTE | 2022-11-02 14:20 | NUR ---
PHYSICAL THERAPIST CAME BUT PATIENT REFUSED AND ONLY WANTED TO SIT ON THE BED.
--- NOTE | 2022-11-02 14:35 | NUR ---
INFORMED PATIENT THAT THE NURSE WILL CHANGE HER DRESSING BUT PATIENT REFUSED. EXPLAINED THE IMPORTANCE OF DRESSING CHANGE BUT PATIENT DECLINED.
--- NOTE | 2022-11-02 18:49 | NUR ---
RN CLOSING NOTES: PATIENT IN BED AWAKE AND WATCHING TELEVISION AT THIS TIME. NO RESPIRATORY DISTRESS NOTED. ON RA WITH OXYGEN SATURATION OF 99%. IV ACCESS ON RIGHT HAND WITH NS RUNNING @ 75 ML/HR, IV SITE WITH NO S/S INFILTRATION NOTED. RIGHT UPPER ARM MIDLINE INTACT, PATENT AND FLUSHES WELL. PATIENT HAS NO C/O PAIN OR DISCOMFORT NOTED THROUGHOUT SHIFT. ALL NEEDS MET AND ANTICIPATED. ALL SAFETY MEASURES IMPLEMENTED. BED LOCKED AND IN LOWEST POSITION WITH BED ALARM ON. WILL ENDORSE TO INCOMING NURSE FOR CONTINUITY OF CARE.
--- NOTE | 2022-11-02 19:30 | NUR ---
PATIENT IN BED AWAKE, A/OX4. NO RESPIRATORY DISTRESS NOTED ON RA. IV ACCESS ON RIGHT HAND #22 WITH NS INFUSING @ 75 ML/HR, BERNIE MIDLINE IN PLACE. SAFETY MEASURES IN PLACE. WILL CONTINUE PLAN OF CARE.
[2022-11-02 20:00] VITALS: BP 95/55
[2022-11-03 04:00] VITALS: BP 96/58
[2022-11-03 06:06] LABS: BASOPHILS # (AUTO) 0.1 K/uL (0.0-0.2); BASOPHILS % (AUTO) 1.5 % (0.0-2.0); EOSINOPHILS % (AUTO) 1.2 % (0.0-6.0); HEMATOCRIT 26 % (33-45); HEMOGLOBIN 8.6 g/dL (11.5-14.8); LYMPHOCYTES # (AUTO) 1.6 K/uL (0.8-4.8); LYMPHOCYTES % (AUTO) 28.7 % (20.0-44.0); MEAN CORPUSCULAR HGB CONC 33 g/dl (31.0-36.0); MEAN CORPUSCULAR VOLUME 91 fL (82-100); MONOCYTES # (AUTO) 0.6 K/uL (0.1-1.30); NEUTROPHILS # (AUTO) 3.3 K/uL (1.8-8.9); NEUTROPHILS % (AUTO) 58.6 % (43.0-81.0); PLATELET COUNT (AUTO) 267 K/uL (150-450); RED BLOOD CELL COUNT(AUTO) 2.85 MIL/uL (4.0-5.2); WHITE BLOOD COUNT (AUTO) 5.6 K/uL (4.3-11.0)
[2022-11-03 06:48] LABS: CALCIUM, SERUM 7.7 mg/dL (8.5-10.1); CREATININE 0.6 mg/dL (0.6-1.3); MAGNESIUM 1.8 mg/dL (1.8-2.4); PHOSPHORUS 2.5 mg/dL (2.5-4.9); POTASSIUM 3.8 mmol/L (3.5-5.1)
--- NOTE | 2022-11-03 06:49 | NUR ---
PT ASLEEP IN BED. A/OX4. NO RESPIRATORY DISTRESS NOTED ON RA. IV ACCESS ON RIGHT HAND #22 WITH NS INFUSING @ 75 ML/HR, BERNIE MIDLINE IN PLACE. DUE MEDS GIVEN ORDERED. NEEDS ATTENDED. SAFETY MEASURES MAINTAINED. WILL ENDORSE TO NEXT NURSE ON DUTY FOR CONTINUITY OF CARE.
[2022-11-03] MEDS: risperiDONE-M 0.5 MG TAB.RAPDIS PO SCH ×2 (07:52→21:19)
[2022-11-03] MEDS: CEFEPIME 2 GM in IV D5W 100 ML IV SCH ×3 (07:52→23:54)
[2022-11-03] MEDS: PANTOPRAZOLE 40 MG TABLET.DR PO SCH (07:52)
[2022-11-03] MEDS: ENSURE ENLIVE 237 ML LIQUID (VANILLA) PO SCH ×3 (07:54→17:16)
[2022-11-03 08:00] VITALS: BP 103/54
[2022-11-03] MEDS: BENZTROPINE MESYLATE (1 MG) 1 MG TABLET PO SCH ×2 (08:06→21:18)
[2022-11-03] MEDS: IV NS 0.9% 1,000 ML IV PRN (08:09)
[2022-11-03] MEDS: DAKINS FULL STRENGTH (0.5%) 480 ML BOTTLE TOP SCH (08:10)
[2022-11-03 12:00] VITALS: BP 96/53
--- NOTE | 2022-11-03 15:00 | NUR ---
rn note pt refused wound care dressing change
--- NOTE | 2022-11-03 19:24 | NUR ---
RN closing NOTE PT IS ALERT AND ORIENTED X1-2. PT IN BED. NO SIGNS OF PAIN OR DISCOMFORT AT THIS TIME. PT HAS RIGHT UPPER ARM MIDLINE. IV INTACT, PATENT AND FLUSHING WELL. PT ON ROOM AIR TOLERATING WELL. PT HAS RIGHT LOWER EXTREMITY DRESSING.DRESSING CLEAN,DRY AND INTACT.ALL SAFETY MEASURES IN PLACE.CALL LIGHT WITHIN REACH.BED LOCKED AT LOWEST POSITION. SIDE RAILS UP X2. bed alarm on. no significant changes during shift. endorsed to overnight stocker rn for contiuity of care.
[2022-11-03 20:00] VITALS: BP 99/63
[2022-11-04 05:31] VITALS: BP 104/56
[2022-11-04 06:21] LABS: BASOPHILS % (AUTO) 0.4 % (0.0-2.0); HEMATOCRIT 26 % (33-45); HEMOGLOBIN 8.8 g/dL (11.5-14.8); LYMPHOCYTES # (AUTO) 1.5 K/uL (0.8-4.8); LYMPHOCYTES % (AUTO) 20.4 % (20.0-44.0); MEAN CORPUSCULAR HGB CONC 33 g/dl (31.0-36.0); MEAN CORPUSCULAR VOLUME 91 fL (82-100); MONOCYTES # (AUTO) 0.8 K/uL (0.1-1.30); MONOCYTES % (AUTO) 10.5 % (2.0-12.0); NEUTROPHILS # (AUTO) 4.9 K/uL (1.8-8.9); NEUTROPHILS % (AUTO) 67.7 % (43.0-81.0); PLATELET COUNT (AUTO) 282 K/uL (150-450); WHITE BLOOD COUNT (AUTO) 7.2 K/uL (4.3-11.0)
[2022-11-04 06:27] LABS: CALCIUM, SERUM 7.5 mg/dL (8.5-10.1); CREATININE 0.6 mg/dL (0.6-1.3); MAGNESIUM 1.7 mg/dL (1.8-2.4); PHOSPHORUS 2.8 mg/dL (2.5-4.9); POTASSIUM 3.6 mmol/L (3.5-5.1)
[2022-11-04] MEDS: PANTOPRAZOLE 40 MG TABLET.DR PO SCH (06:44)
[2022-11-04] MEDS: ENSURE ENLIVE 237 ML LIQUID (VANILLA) PO SCH ×3 (08:18→17:06)
[2022-11-04] MEDS: BENZTROPINE MESYLATE (1 MG) 1 MG TABLET PO SCH ×2 (08:43→21:17)
[2022-11-04] MEDS: risperiDONE-M 0.5 MG TAB.RAPDIS PO SCH ×2 (08:44→21:18)
[2022-11-04] MEDS: CEFEPIME 2 GM in IV D5W 100 ML IV SCH ×2 (08:46→16:31)
[2022-11-04] MEDS: DAKINS FULL STRENGTH (0.5%) 480 ML BOTTLE TOP SCH (08:46)
[2022-11-04] MEDS: Magnesium 1GM/D5W 100ML PREMIX 100 ML IV SCH ×2 (12:08→17:20)
[2022-11-04] MEDS ORDERED: Magnesium 1GM/D5W 100ML PREMIX 100 ML IV SCH (17:30)
[2022-11-05] MEDS: CEFEPIME 2 GM in IV D5W 100 ML IV SCH ×4 (00:02→23:24)
[2022-11-05] MEDS: PANTOPRAZOLE 40 MG TABLET.DR PO SCH (06:47)
--- NOTE | 2022-11-05 07:00 | NUR ---
Patient refused wound pictures states that someone already took pictures of her wound.
--- NOTE | 2022-11-05 07:37 | NUR ---
RN OPENING NOTE PT IS ALERT AND ORIENTED X1-2. PT IN BED. NO SIGNS OF PAIN OR DISCOMFORT AT THIS TIME. PT HAS RIGHT UPPER ARM MIDLINE. IV INTACT, PATENT AND FLUSHING WELL. PT ON ROOM AIR TOLERATING WELL. PT HAS RIGHT LOWER EXTREMITY DRESSING..ALL SAFETY MEASURES IN PLACE.CALL LIGHT WITHIN REACH.BED LOCKED AT LOWEST POSITION. SIDE RAILS UP X2.
[2022-11-05] MEDS: risperiDONE-M 0.5 MG TAB.RAPDIS PO SCH ×3 (08:10→23:22)
[2022-11-05] MEDS: ENSURE ENLIVE 237 ML LIQUID (VANILLA) PO SCH ×3 (08:10→17:30)
[2022-11-05] MEDS: BENZTROPINE MESYLATE (1 MG) 1 MG TABLET PO SCH ×2 (08:10→20:47)
[2022-11-05] MEDS: DAKINS FULL STRENGTH (0.5%) 480 ML BOTTLE TOP SCH (08:10)
[2022-11-05] MEDS: IV NS 0.9% 1,000 ML IV PRN (11:19)
--- NOTE | 2022-11-05 14:29 | NUR ---
rn note pt refused wound care dressing change.wound care doctor aware.
--- NOTE | 2022-11-05 14:31 | NUR ---
rn note pt also refused physical therapy. refused also with at bedside
--- NOTE | 2022-11-05 16:00 | NUR ---
rn note gave report to diffusion furnace operator for continuity of care
--- NOTE | 2022-11-05 19:00 | NUR ---
RN NOTES: RECEIVED AWAKE ON BED, LYING COMFORTABLY, A/OX4, ORIENTED TO UNIT AND STAFF, COOPERATIVE TO CARE, RLE WOUND KEPT ELEVATED WHILE ON BED, NS AT 75 ML/HR TEMPORARILY STOP PER PATIENT REQUEST, ENCOURAGE HYDRATION, PROVIDED WITH WATER PITCHER AT BED SIDE,KEPT CALL LIGHT WITHIN EASY REACH, SAFETY AND ASPIRATION PRECAUTION OBSERVED.
[2022-11-05 20:00] VITALS: BP 86/53
--- NOTE | 2022-11-05 20:30 | NUR ---
RN NOTES: STABLE NO COMPLAINTS OF ANY PAIN OR DISCOMFORT, NO SIGN OF RESPIRATORY DISTRESS,AROUND 1999 BP-86/53, NO DIZZINESS, NO HEADACHE, EXPLAINED TO HER WE NEED TO RESUME HER IVF OF NS AT 75 ML/HR,SHE AGREED.
--- NOTE | 2022-11-05 21:00 | NUR ---
RN NOTES: ASSISTED TO; FAWAD, USING BED PETERSON, ASKED IF SHE HAS ANY PAIN OR DISCOMFORT, SHE SAID "I DONT HAVE ANY PAIN", AGREED TO RE CHECK BP-92/51, THEN SHE GO BACK TO SLEEP.
--- NOTE | 2022-11-05 22:00 | NUR ---
RN NOTES: -MEDICATION ORDER: RISPERDAL 3 MG DUE AT 2200, STOCK DOSE 0.5 MG=6 TABLETS, BY MISTAKE TOOK ONLY 1 TABLET=0.5 [facility], IMMEDIATELY NOTIFIED CHARGE NURSE, NEED TO TAKE 5 TABLETS=2.5 MG TO COMPLETE 3 MG DOSE. -CN AND RN RECOUNT CUBICLE, UNFORTUNATELY RISPERDAL DID NOT OPEN -CN OPEN THE OTHER CUBICLE, DISPENSE ONLY 4 TABLETS OF 0.5 MG EQUIVALENT TO 2MG, STILL PENDING OF 0.5 MG TO COMPLETE THE DOSE, CN NOTIFIED RN SHEEP KILLER -RN SHEEP KILLER CAME, SHE TOOK O.5MG=1 TABLET TO OTHER UNIT -AT 2321 RISPERDAL 3 MG (0.5 MG=6 TABLETS) COMPLETED, GIVEN TO PATIENT.
[2022-11-05] MEDS ORDERED: risperiDONE-M 0.5 MG TAB.RAPDIS ONE (22:56)
--- NOTE | 2022-11-06 02:49 | NUR ---
RN NOTES: AROUND 0100 CHECK AT FREQUENT INTERVALS, AWAKE , ASSISTED TO USE BED PETERSON, THEN SHE GO BACK TO SLEEP.
--- NOTE | 2022-11-06 04:48 | NUR ---
RN NOTES: DURING V/S CHECKING RN OFFERED TO DO CHANGE OF WOUND DRESSING ON HER LEFT FOOT , SHE REFUSED, SHE SAID LATER.
--- NOTE | 2022-11-06 06:58 | NUR ---
RN NOTES: RN CAME BACK AND OFFERED TO GIVE PAIN MEDS AND DO HER RLE WOUND DRESSING, SHE SAID "I AM NOT YET READY, I WANT TO SLEEP AND GATHER MY STRENGTH", RESPECT HER DECISION.IVF CONTINUE, REPOSITIONED, RLE ELEVATED, FOR LABS THIS MORNING, NO PAIN OR DISCOMFORT, ENDORSED FOR CONTINUITY OF CARE.
[2022-11-06 07:00] LABS: BASOPHILS % (AUTO) 0.7 % (0.0-2.0); EOSINOPHILS % (AUTO) 1.4 % (0.0-6.0); HEMATOCRIT 26 % (33-45); HEMOGLOBIN 8.9 g/dL (11.5-14.8); LYMPHOCYTES # (AUTO) 1.7 K/uL (0.8-4.8); LYMPHOCYTES % (AUTO) 24.3 % (20.0-44.0); MEAN CORPUSCULAR HGB CONC 34 g/dl (31.0-36.0); MEAN CORPUSCULAR VOLUME 91 fL (82-100); MONOCYTES % (AUTO) 14.2 % (2.0-12.0); NEUTROPHILS # (AUTO) 4.3 K/uL (1.8-8.9); NEUTROPHILS % (AUTO) 59.4 % (43.0-81.0); PLATELET COUNT (AUTO) 414 K/uL (150-450); RED BLOOD CELL COUNT(AUTO) 2.87 MIL/uL (4.0-5.2); WHITE BLOOD COUNT (AUTO) 7.2 K/uL (4.3-11.0)
[2022-11-06 07:27] LABS: CALCIUM, SERUM 7.6 mg/dL (8.5-10.1); CREATININE 0.7 mg/dL (0.6-1.3); MAGNESIUM 1.8 mg/dL (1.8-2.4); PHOSPHORUS 3.1 mg/dL (2.5-4.9); POTASSIUM 3.6 mmol/L (3.5-5.1)
[2022-11-06] MEDS: PANTOPRAZOLE 40 MG TABLET.DR PO SCH (07:50)
[2022-11-06] MEDS: ENSURE ENLIVE 237 ML LIQUID (VANILLA) PO SCH ×3 (08:00→17:00)
[2022-11-06] MEDS: DAKINS FULL STRENGTH (0.5%) 480 ML BOTTLE TOP SCH (09:00)
[2022-11-06] MEDS: risperiDONE-M 0.5 MG TAB.RAPDIS PO SCH ×3 (10:31→21:19)
[2022-11-06] MEDS: BENZTROPINE MESYLATE (1 MG) 1 MG TABLET PO SCH ×2 (10:31→21:19)
[2022-11-06] MEDS: CEFEPIME 2 GM in IV D5W 100 ML IV SCH ×2 (10:33→16:39)
--- NOTE | 2022-11-06 19:20 | NUR ---
RN NOTES RECEIVED REPORT FROM DRAFTER DETAIL. PATIENT IN BED A/O X2. ON ROOM AIR SATING 97% NO SOB NO DISTRESS NOTED AT THIS TIME. WITH IV ACCESS AT R HAND # 22 PATENT FLUSHES WELL RUNNING NS @ 75 ML/HR. ALL SAFETY MEASURES IN PLACE AT ALL TIMES.ALL SAFETY MEASURES IN PLACE AT ALL TIMES. HOB ELEVATED. CALL LIGHT WITHIN REACH. WILL CLOSELY MONITOR THE PATIENT
[2022-11-07] MEDS: CEFEPIME 2 GM in IV D5W 100 ML IV SCH ×3 (00:42→16:50)
[2022-11-07] MEDS: IV NS 0.9% 1,000 ML IV PRN (00:45)
--- NOTE | 2022-11-07 05:00 | NUR ---
RN NOTES PATIENT REFUSED FOR WOUND CARE AND DRESSING CHANGE. R/B EXPLAINED STILL REFUSED. WILL INFORMED DOCTOR IN A.M
--- NOTE | 2022-11-07 06:42 | NUR ---
RN NOTES PATIENT REMAINS STABLE NO SIGNIFICANT CHANGES IN HEALTH CONDITION. ALL DUE MEDS GIVEN ORDERED. STILL REFUSING FOR DRESSING CHANGE. WILL ENDORSED TO MORNING SHIFT FOR NALLELY
[2022-11-07] MEDS: ENSURE ENLIVE 237 ML LIQUID (VANILLA) PO SCH ×3 (08:00→17:00)
[2022-11-07] MEDS: DAKINS FULL STRENGTH (0.5%) 480 ML BOTTLE TOP SCH (09:00)
[2022-11-07] MEDS: BENZTROPINE MESYLATE (1 MG) 1 MG TABLET PO SCH ×2 (09:19→21:01)
[2022-11-07] MEDS: PANTOPRAZOLE 40 MG TABLET.DR PO SCH (09:19)
[2022-11-07] MEDS: risperiDONE-M 0.5 MG TAB.RAPDIS PO SCH ×3 (09:19→21:01)
--- NOTE | 2022-11-07 18:42 | NUR ---
PATIENT REFUSED WOUND CARE. ELECTRONICS TEST ENGINEER MADE SEVERAL ATTEMPTS AND PATIENT STILL REFUSED. "IT HURTS WHEN I MOVE IT" OFFERED PAIN MEDS AND PATIENT DECLINED. PATIENT STATED, " MAYBE LATER BUT NOT RIGHT NOW." PATIENT WAS EDUCATED ON THE IMPORTANCE OF DRESSING CHANGE PER ORDER, VOICED UNDERSTANDING. CONTINUES TO REFUSED. SUZE Connors RN BSN.
[2022-11-08] MEDS: CEFEPIME 2 GM in IV D5W 100 ML IV SCH ×3 (00:20→15:31)
--- NOTE | 2022-11-08 04:20 | NUR ---
RN NOTE PT REFUSED BED BATH AND WOUND CARE. OFFERED MEDICATION PRIOR FOR PAIN, STILL REFUSED. STATED SHE WOULD DO IT IN THE AFTERNOON.
[2022-11-08] MEDS: IV NS 0.9% 1,000 ML IV PRN (06:35)
--- NOTE | 2022-11-08 07:01 | NUR ---
RN CLOSING NOTE ALL SIGNIFICANT CHANGES THROUGHOUT SHIFT WAS DOCUMENTED. PT STABLE WILL ENDORSE TO MORNING SHIFT FOR NALLELY.
[2022-11-08] MEDS: PANTOPRAZOLE 40 MG TABLET.DR PO SCH (07:30)
[2022-11-08] MEDS: ENSURE ENLIVE 237 ML LIQUID (VANILLA) PO SCH ×3 (08:00→17:16)
[2022-11-08 08:03] LABS: CALCIUM, SERUM 7.9 mg/dL (8.5-10.1); CREATININE 0.6 mg/dL (0.6-1.3); MAGNESIUM 1.8 mg/dL (1.8-2.4); PHOSPHORUS 3.4 mg/dL (2.5-4.9); POTASSIUM 3.9 mmol/L (3.5-5.1)
[2022-11-08 08:39] LABS: BASOPHILS % (AUTO) 0.6 % (0.0-2.0); EOSINOPHILS % (AUTO) 0.4 % (0.0-6.0); HEMATOCRIT 26 % (33-45); HEMOGLOBIN 8.7 g/dL (11.5-14.8); LYMPHOCYTES # (AUTO) 1.3 K/uL (0.8-4.8); LYMPHOCYTES % (AUTO) 15.6 % (20.0-44.0); MEAN CORPUSCULAR HGB CONC 33 g/dl (31.0-36.0); MEAN CORPUSCULAR VOLUME 92 fL (82-100); MONOCYTES # (AUTO) 1.2 K/uL (0.1-1.30); MONOCYTES % (AUTO) 14.8 % (2.0-12.0); NEUTROPHILS # (AUTO) 5.7 K/uL (1.8-8.9); NEUTROPHILS % (AUTO) 68.6 % (43.0-81.0); PLATELET COUNT (AUTO) 534 K/uL (150-450); RED BLOOD CELL COUNT(AUTO) 2.88 MIL/uL (4.0-5.2); WHITE BLOOD COUNT (AUTO) 8.3 K/uL (4.3-11.0)
[2022-11-08] MEDS: DAKINS FULL STRENGTH (0.5%) 480 ML BOTTLE TOP SCH (09:00)
[2022-11-08] MEDS: risperiDONE-M 0.5 MG TAB.RAPDIS PO SCH ×3 (09:04→22:06)
[2022-11-08] MEDS: BENZTROPINE MESYLATE (1 MG) 1 MG TABLET PO SCH ×2 (09:05→22:05)
[2022-11-08] MEDS: HYDROCODONE/APAP 5/325MG TABLET PO PRN (09:05)
--- NOTE | 2022-11-08 09:34 | NUR ---
URIEL Note: SW met with patient briefly. Pt was unable to give appropriate address and discuss her discharge plan. Pt did report to this science writer that she receives SSI $900.00 she stated that she receives to checks. URIEL discussed Independent/Assisted Living option. URIEL contacted Leslie Thornton ([phone]) and discussed pt's case. Leslie stated that she will follow-up with [facility] and [facility] to see which placement is appropriate.
[2022-11-08] MEDS ORDERED: IV NS 0.9% 500 ML IV ONE (11:00)
--- NOTE | 2022-11-08 11:25 | NUR ---
DRESSING CHANGED COMPLETED TO RLE. FAMILY INTERVENTION SPECIALIST MEDICATED PATIENT PRIOR TO DRESSING CHANGE WITH NARCO 5-325MG. DENIES PAIN DURING DRESSING CHANGE. DRESSING REMOVED SATURATED WITH YELLOW DRAINAGE, STRONG ODOR NOTED. CLEANSED WOUND WITH NS, PAT DRY AREA WITH DRY GAUZE. PACKED UNDERMINING AREA WITH NS MOISTEN GAUZE. APPLIED XEROFORM DIRECTLY TO WOUND COVERED WITH GAUZE, FOLLOWED BY ABD PADS, SECURED BY TAPE WRAPPED WITH SANDEEP BAND. TOLERATED WELL. NO DISCOMFORT NOTED. SUZE Connors RN
--- NOTE | 2022-11-08 14:15 | NUR ---
FACILITY CONTACT: URIEL spoke with Leslie harley ([phone]) who stated that pt is accepted at [facility] located at [address] [place] [address]; ([phone]), Admin Miah who has accepted. URIEL notified Natali family caseworker to be in contact with Leslie ([phone]) who will provide transportation for pt when she is ready for discharge.
--- NOTE | 2022-11-08 14:20 | NUR ---
IV fluids adimn as ordered. current BP 123/ 71 hr 81. Yadi Connors RN
--- NOTE | 2022-11-08 17:35 | NUR ---
EDITOR INDEX ATTEMPTED TO CALL REPORT @ [phone]. VOICEMAIL CAME ON. EDITOR INDEX LEFT MESSAGE ON VOICEMAIL TO RETURN CALL WITH NAME AND CALL BACK NUMBER. SUZE Connors RN
--- NOTE | 2022-11-08 20:43 | NUR ---
RN OPENING NOTE (THIS NURSE WAS FLOATED TO [facility] LAST MINUTE) PATIENT ASLEEP IN BED. A/OX2 (NAME, PLACE). NO S/S OF DISTRESS, BREATHING WITHOUT DIFFICULTY ON ROOM AIR. SAFETY MEASURES IN PLACE: BED LOCKED AND AT LOWEST POSITION, RAILS UP X2, CALL SHER WITHIN REACH. ACCORDING TO VARIOUS NURSES ON THE FLOOR THAT GAVE ME REPORT, PATIENT WAS SUPPOSED TO BE D/C'd EARLIER IN THE DAY SHIFT AT 1800, BUT FACILITY NEVER SENT ANYONE. THIS RN CONTACTED CAROL GARCIA ([phone]) TO FOLLOW-UP. CAROL STATED SHE WAS UNABLE TO SEND ANYONE AND WILL ATTEMPT TO PICK-UP PATIENT TOMORROW, 11/09/22, @1000 (ESTIMATED). PATIENT HAD IV ACCESS REMOVED. WILL ENCOURAGE PATIENT TO HAVE NEW IV ACCESS REINSERTED. WILL CONTINUE TO MONITOR PATIENT.
[2022-11-09] MEDS: CEFEPIME 2 GM in IV D5W 100 ML IV SCH ×2 (00:32→08:18)
--- NOTE | 2022-11-09 06:57 | NUR ---
RN CLOSING NOTE PATIENT ASLEEP IN BED. A/OX3. NO S/S OF DISTRESS, BREATHING WITHOUT DIFFICULTY ON ROOM AIR. [facility]FA #20 INTACT AND PATENT W/ NS 75ML/HR. SAFETY MEASURES IN PLACE: BED LOCKED IN PLACE AND AT LOWEST POSITION, RAILS UP X2, CALL SHER WITHIN REACH. WILL ENDORSE TO NEXT SHIFT FOR NALLELY.
[2022-11-09] MEDS: ENSURE ENLIVE 237 ML LIQUID (VANILLA) PO SCH (08:19)
[2022-11-09] MEDS: DAKINS FULL STRENGTH (0.5%) 480 ML BOTTLE TOP SCH (08:19)
[2022-11-09] MEDS: risperiDONE-M 0.5 MG TAB.RAPDIS PO SCH (08:27)
[2022-11-09] MEDS: BENZTROPINE MESYLATE (1 MG) 1 MG TABLET PO SCH (08:27)
[2022-11-09] MEDS: PANTOPRAZOLE 40 MG TABLET.DR PO SCH (08:27)
[2022-11-09] MEDS: HYDROCODONE/APAP 5/325MG TABLET PO PRN (08:28)
--- NOTE | 2022-11-09 10:42 | NUR ---
RN NOTE PATIENT WAS DISCHARGED AT THIS TIME. ID BAND AND IV ACCESS REMOVED, NO BLEEDING NOTED. ALL VS STABLE. DISCHARGE INSTRUCTION GIVEN TO PATIENT, AND WAS ESCORTED VIA WHEELCHAIR WITH SECURITY GUARDS.
== END 2022-11-09 10:49 | DRG 317 ==
LOC: ER 11:15 → EDBD 19:49 → MEDSG1 19:49
PROVIDERS: ADMIT Student in an Organized Health Care Education/Training Program; ATTEND Student in an Organized Health Care Education/Training Program
PROC: 05HA33Z Insertion of Infusion Device into Left Brachial Vein, Percutaneous Approach (ICD-10-PCS; 2022-10-27)
PROC: 0KBS0ZZ Excision of Right Lower Leg Muscle, Open Approach (ICD-10-PCS; principal; 2022-10-28)
PROC: 30233N1 Transfusion of Nonautologous Red Blood Cells into Peripheral Vein, Percutaneous Approach (ICD-10-PCS; 2022-10-29)
DX: M72.6 Necrotizing fasciitis (principal); N17.0 Acute kidney failure with tubular necrosis; E43 Unspecified severe protein-calorie malnutrition; E87.1 Hypo-osmolality and hyponatremia; D62 Acute posthemorrhagic anemia; D63.8 Anemia in other chronic diseases classified elsewhere; E83.39 Other disorders of phosphorus metabolism; L03.115 Cellulitis of right lower limb; Z20.822 Contact with and (suspected) exposure to COVID-19; Z59.00 Homelessness unspecified; D75.839 Thrombocytosis, unspecified; D50.9 Iron deficiency anemia, unspecified; E87.5 Hyperkalemia; B96.20 Unspecified Escherichia coli [E. coli] as the cause of diseases classified elsewhere; B96.4 Proteus (mirabilis) (morganii) as the cause of diseases classified elsewhere; S30.810A Abrasion of lower back and pelvis, initial encounter; S70.312A Abrasion, left thigh, initial encounter; S70.311A Abrasion, right thigh, initial encounter; X58.XXXA Exposure to other specified factors, initial encounter; Y92.9 Unspecified place or not applicable; R23.4 Changes in skin texture; T79.7XXA Traumatic subcutaneous emphysema, initial encounter; Z68.1 Body mass index [BMI] 19.9 or less, adult; E87.6 Hypokalemia; E88.09 Other disorders of plasma-protein metabolism, not elsewhere classified; F17.210 Nicotine dependence, cigarettes, uncomplicated; F25.0 Schizoaffective disorder, bipolar type
CPT/HCPCS: 36410; 36415; 71045-TC; 73590-TC; 73600-TC; 73620-TC; 73700-TC; 80048-TC; 80053-TC; 80076-TC; 80202-TC; 81001; 82728-TC; 82962-TC; 83540-TC; 83605-TC; 83735-TC; 84100-TC; 84443-TC; 84702-TC; 84703-TC; 85025-TC; 86803; 86850-TC; 87040-TC; 87081-TC; 87086-TC; 87806; 90715; 97112-TC; 97116-TC; 97530-TC; A4217; A6209; A6253; A6403; C9803; G0378; G0480; J0330; J0690; J0692; J1170; J1756; J2060; J2270; J2405; J2543; J2704; J2765; J3010; J3370; J3475; J3480; J3490; J7030; J7050; J7060; J7120; P9016

== ENCOUNTER 2022-11-13 12:32 | Emergency (ER) | payer MEDICAID ==
--- NOTE | 2022-11-13 13:59 | NUR ---
Per Officer Leandro "Saw pt walk out"
== END 2022-11-13 14:00 | disposition left against medical advice (07) ==
LOC: ER 12:35
DX: Z53.21 Procedure and treatment not carried out due to patient leaving prior to being seen by health care provider (principal)